=== PATIENT | female | born 1955 | race Caucasian/White ===

== ENCOUNTER 2019-02-20 02:01 | Inpatient (IN) | payer OTHER ==
[2019-02-20] MEDS ORDERED: ASPIRIN 81 MG CHEWABLE TABLETS PO ONE (02:17)
[2019-02-20] MEDS ORDERED: SODIUM CHLORIDE 1,000 ML IV STA (02:17)
[2019-02-20 02:21] VITALS: BMI 31.3
[2019-02-20] MEDS ORDERED: ASPIRIN 81 MG CHEWABLE TABLETS ONE ×2 (02:25→10:46)
--- NOTE | 2019-02-20 02:41 | PDOC ---
Attending Attestation - Resident Resident Name: Ramirez Dias - ED Attending Attestation I have performed the following: I have examined & evaluated the patient, The case was reviewed & discussed with the resident, I agree w/resident's findings & plan - HPI HPI: 02/20/19 02:53 hx of stroke and vomiting at home tonight; 10 episodes after eating eggplant prepared at home and pork dumplings from a [place] restaurant. Pt was likely food poisoned, but after the vomiting, she developed headache and her daughter noted a facial droop. 02/20/19 04:19 Pt has normal labs; low K+ due to all the vomiting. It will be repleted. Pt's YAO is improved, but still present. - Physicial Exam PE: 02/20/19 19:32 Agree with resident exam. Given pt's facial droop that was noted at home, she will be admitted for neuro eval and consult. - Medical Decision Making 02/20/19 05:54 Patient Name: MELANIE SHEPPARD THIS IS A PRELIMINARY REPORT FROM [facility] DATE OF SERVICE: 2019-02-20 02:36:39 IMAGES: 140 EXAM: CT HEAD WITHOUT CONTRAST No acute brain parenchymal abnormality. No hemorrhage, mass or acute territorial infarct. Essentially clear paranasal sinuses. Visualized mastoid air cells clear. Heart Score/ECG Review - ECG Intrepretation Rhythm: Regular Rhythm - ST and T Early Repolarization: No Non Specific ST-T Wave changes: Yes Flattened T Waves: Yes - ECG Impressions Normal ECG: No Ischemic Changes: Yes (inferolateral T wave flattening)
[2019-02-20 02:43] LABS: BASO % 0.6 % (0-2.0); EOS % 1.1 % (0-4.5); HEMATOCRIT 42.1 % (32.4-45.2); HEMOGLOBIN 14.6 GM/dL (10.7-15.3); MCH 30.5 pg (25.7-33.7); MCHC 34.8 g/dl (32.0-36.0); MEAN CELL VOLUME 87.8 fl (80-96); MEAN PLT VOLUME 9.1 fl (7.5-11.1); MONO % 7.5 % (3.8-10.2); NEUT % 67.8 % (42.8-82.8); PLATELET COUNT 202 K/MM3 (134-434); RDW 12.6 % (11.6-15.6); WHITE BLOOD COUNT 10.6 K/mm3 (4.0-10.0)
[2019-02-20] MEDS ORDERED: MECLIZINE HCL 25 MG TABLET (FP) PO ONE (02:44)
--- NOTE | 2019-02-20 02:44 | PDOC ---
History of Present Illness - General Chief Complaint: CVA/TIA Stated Complaint: SLURRED SPEECH Time Seen by Provider: 02/20/19 02:16 History Source: Patient Exam Limitations: No Limitations, Language Barrier - History of Present Illness Initial Comments: 63 yo F w a pmh of HTN, Chronic vertigo, intestinal polyps, lung nodule, CVA 15 years ago presents to the ER with right sided facial droop and speech slurring. This was all associated with 15 episodes of watery vomiting that was NBNB. The patient's daughter is at bedside who is helping with the story. The patient states this feels much worse than her typical vertigo. The patient also states that her vertigo is not usually associated with difficulty speaking or facial weakness. The patient denies any arm or leg numbness, weakness or tingling. Patient also denies recent fevers, chills, or infections. PCP: Brandon Callejas Allergies: NKA, NKDA Social Hx: Denies current smoking, alcohol, or illict drug usage. PSH: cholecystectomy tPA Exclusion checklist 3-4.5h - Time Elapsed Date last known well: 02/19/19 Time last known well: 22:00 Elaspsed time: Day(s) and 6 Hour(s) and 3 Minutes - Thrombolytic Therapy Candidate Is patient eligible for thrombolytic therapy: No - Exclusion Criteria 3-4.5 hr SBP greater than 185 or DBP greater than 110mmHg despite tx: No Recent IC/spinal surgery,head trauma or stroke<3mos.: No Hx IC hemorrhage, IC neoplasm, AV malformation or aneurysm: No Active internal bleeding: No Blding diathesis(low plt ct, inc PTT,INR>1.7 or use of NOAC): No Symptoms suggest subarachnoid hemorrhage: No CT demonstrates multilobar infarct(>1/3 cerebral hemiphere): No Arterial puncture at noncompressible site in previous 7 days: No Blood glucose concentration less than 50mg/dL (2.7mmol/L): No - Relative Exclusion Criteria 3-4.5 hr Life expectancy <1 yr or severe co-morbid illness: No : No Patient/family refused: No Rapid improvement: Yes Stroke severity too mild: Yes Recent acute GA (w/in previous 3 months): No Seizure at onset with postictal residual neuro impairments: No Major surgery or serious trauma w/in previous 14 days: No Recent GI or hemorrhage (w/in previous 21 days): No - Add'l Relative Exclusion 3-4.5 hr Age > 80: No Hx of both diabetes AND prior ischemic stroke: Yes Taking an oral anticoagulant regardless of INR: No NIHSS >25: No - Ineligibility reason(s) Reasons No tPA given: Outside of window - delayed arrival, See reason(s) noted above NIH Stroke Scale - Last Known Well Date/Time & Onset Date Last Known Well: 02/19/19 Time Last Known Well: 22:00 - Initial Evaluation Level of consciousness: Not alert, but arousable with minimal stimulation Ask patient the month and their age: Answers both correctly Ask patient to open & close eyes; make fist and let go: Obeys both correctly Best gaze (horizontal eye movement): Partial gaze palsy Visual field testing: No visual field loss Facial paresis (Show teeth/raise eyebrows/close eyes tight): Minor paralysis ( flattened nasolabial fold, asymmetry on smiling) Motor Function: Left Arm: Normal Motor Function: Right Arm: Normal (extends arm 90 (or 45) degrees for 10 seconds without drift Motor Function: Left Leg: Normal (extends leg 30 degrees for 5 seconds without drift) Motor Function: Right Leg: Normal (extends leg 30 degrees for 5 seconds without drift) Limb Ataxia: No ataxia Sensory(Use pinprick test arms,legs,trunk,face/side to side): Normal Best language (Describe picture, name items, read sentences): No Aphasia Dysarthria (read several words): Normal articulation Extinction and Inattention: No abnormality - Total Score NIH Stroke Scale Score: 3 Past History - Past Medical History Allergies/Adverse Reactions: Allergies Allergy/AdvReac Type Severity Reaction Status Date / Time No Known Allergies Allergy Verified 02/20/19 02:19 Home Medications: Ambulatory Orders Amlodipine Besylate 5 mg PO DAILY 02/20/19 Atorvastatin Ca [Lipitor] 20 mg PO HS 02/20/19 Carbamazepine [Carbamazepine ER] 100 mg PO BID 02/20/19 Meclizine HCl 25 mg PO TID 02/20/19 - Suicide/Smoking/Psychosocial Hx Smoking Status: No Smoking History: Unknown if ever smoked Have you smoked in the past 12 months: No Number of Cigarettes Smoked Daily: 0 Information on smoking cessation initiated: No Hx Alcohol Use: No Drug/Substance Use Hx: No Review of Systems - Review of Systems Able to Perform ROS?: Yes Comments:: CONSTITUTIONAL: No fever, no chills, no fatigue EYES: No visual changes ENT: No ear pain, no sore throat CARDIOVASCULAR: No chest pain, no palpitations RESPIRATORY: No cough, no SOB GI: No abdominal pain, + nausea, + vomiting, no constipation, no diarrhea GENITOURINARY: No dysuria, no frequency, no hematuria MUSKULOSKELETAL: No backpain, no joint pain, no myalgias SKIN: No rash NEURO: + headache *Physical Exam - Vital Signs Last Vital Signs Temp Pulse Resp BP Pulse Ox 97.4 F L 78 18 141/101 H 96 02/20/19 02:19 02/20/19 02:02/20/19 02:02/20/19 02:02/20/19 02:19 - Physical Exam Comments: CONSTITUTIONAL: Well-appearing; well-nourished; in no apparent distress HEAD: Normocephalic; atraumatic EYES: PERRL; EOM intact ENMT: External appears normal; normal oropharynx NECK: Supple; non-tender; no cervical lymphadenopathy CARD: Normal S1, S2; no murmurs, rubs, or gallops RESP: Normal chest excursion with respiration; breath sounds clear and equal bilaterally; no wheezes, rhonchi, or rales ABD: Soft, non-distended; non-tender; no palpable organomegaly, no palpable hernias EXT: Normal ROM in all four extremities; non-tender to palpation; distal pulses intact SKIN: Warm, dry, no rash NEURO: There is a horizontal nystagmus on leftward gaze. Alert, awake, confused. There is a right lower lip droop. No deficits to light touch in face, upper extremities and lower extremities. No motor deficits in the in upper extremities and lower extremities. No pronator drift. Normoreflexic in the upper and lower extremities. Normal speech. Toes are down-going bilaterally. No dysmetria. No dysdiadochokinesis. ED Treatment Course - LABORATORY CBC & Chemistry Diagram: 02/20/19 02:29 02/20/19 02:29 - RADIOLOGY Radiology Studies Ordered: Category Date Time Status HEAD CT (STROKE) [CT] Stat CT Scan 02/20/19 02:17 Taken CHEST X-RAY PORTABLE* [RAD] Stat Radiology 02/20/19 02:18 Ordered - Medications Given in the ED: ED Medications Discontinued Medications Generic Name Dose Route Start Last Admin Trade Name Simone PRN Reason Stop Dose Admin Aspirin 81 mg 02/20/19 02:17 02/20/19 02:34 Asa - PO 02/20/19 02:18 81 mg ONCE ONE Administration Medical Decision Making - Medical Decision Making 63 yo F w a pmh of HTN, Chronic vertigo, intestinal polyps, lung nodule, CVA 15 years ago presents to the ER with right sided facial droop and speech slurring. This was all associated with 15 episodes of watery vomiting that was NBNB. The patient's daughter is at bedside who is helping with the story. The patient states this feels much worse than her typical vertigo. The patient also states that her vertigo is not usually associated with difficulty speaking or facial weakness. The patient denies any arm or leg numbness, weakness or tingling. Patient also denies recent fevers, chills, or infections. VS: Hypertensive, otherwise WNL DDx IBNLT: Posterior stroke, other CVA/TIA, vertigo, complex migraine, intracranial bleed. Plan: Labs, urine, ekg, head ct, cxr, Neuro consult, admit Tele - Patient is not a candidate for TPA *DC/Admit/Observation/Transfer Diagnosis at time of Disposition: Facial weakness, Slurring of speech, Vomiting - Discharge Dispostion Condition at time of disposition: Guarded Decision to Admit order: Yes - Referrals - Patient Instructions - Post Discharge Activity
[2019-02-20] MEDS ORDERED: MECLIZINE HCL 25 MG TABLET (FP) ONE ×2 (02:50→06:06)
[2019-02-20] MEDS ORDERED: METOCLOPRAMIDE HCL INJECTION 10 MG/2 ML VIAL IVPUSH ONE (03:13)
[2019-02-20 03:14] LABS: PH,URINE 8.5 (5.0-8.0); URINE APPEARANCE CLEAR; URINE BILIRUBIN NEGATIVE (NEGATIVE); URINE COLOR YELLOW; URINE GLUCOSE (UA) NEGATIVE (NEGATIVE); URINE KETONE NEGATIVE (NEGATIVE); URINE LEUK ESTERASE NEGATIVE (NEGATIVE); URINE NITRITE NEGATIVE (NEGATIVE); URINE PROTEIN NEGATIVE (NEGATIVE); URINE UROBILINOGEN 0.2 mg/dL (0.2-1.0)
[2019-02-20 03:28] LABS: INR 0.92 (0.83-1.09); PROTHROMBIN TIME (PATIENT) 10.9 SEC (9.7-13.0)
[2019-02-20] MEDS ORDERED: METOCLOPRAMIDE HCL INJECTION 10 MG/2 ML VIAL ONE (03:40)
[2019-02-20 04:01] LABS: ALK PHOS 117 U/L (45-117); ANION GAP 6 MMOL/L (8-16); BILIRUBIN,TOTAL 0.5 mg/dL (0.2-1); BLOOD UREA NITROGEN 16.2 mg/dL (7-18); CALCIUM 9.2 mg/dL (8.5-10.1); CHLORIDE 106 mmol/L (98-107); CHOLESTEROL 225 mg/dL (50-200); CO2 29 mmol/L (21-32); CREATININE 0.8 mg/dL (0.55-1.3); GLUCOSE,RANDOM 142 mg/dL (74-106); HDL CHOLESTEROL 45 mg/dL (40-60); POTASSIUM 3.3 mmol/L (3.5-5.1); SGOT/AST 32 U/L (15-37); SGPT/ALT 27 U/L (13-61); SODIUM 141 mmol/L (136-145); TOT PROT 8.1 g/dl (6.4-8.2); TRIGLYCERIDES 210 mg/dL (0-150)
[2019-02-20] MEDS ORDERED: POTASSIUM CHLORIDE TABS 20 MEQ TABLET.ER (FP) PO ONE ×2 (04:01→04:08)
[2019-02-20] MEDS ORDERED: MAGNESIUM SULF 50% (8.12 MEQ/2 ML-1 GM VIAL) IVPB ONE (04:05)
[2019-02-20] MEDS ORDERED: MAGNESIUM SULF 50% (8.12 MEQ/2 ML-1 GM VIAL) ONE (04:12)
[2019-02-20] MEDS ORDERED: ACETAMINOPHEN 1000 MG/100 ML VIAL (NON FORMULARY) IVPB ONE (04:21)
[2019-02-20] MEDS ORDERED: ACETAMINOPHEN INJECTION 100 ML IVPB ONE (04:51)
[2019-02-20] MEDS ORDERED: SODIUM CHLORIDE 1,000 ML IV SCH (05:30)
--- NOTE | 2019-02-20 05:30 | PN ---
Teaching Attending Note Name of Resident: Rima Mendoza ATTENDING PHYSICIAN STATEMENT I saw and evaluated the patient. Chart, data, imaging reviewed. I reviewed the resident's note and discussed the case with the resident. I agree with the resident's findings and plan as documented. SUBJECTIVE: 63yo woman w/ htn, obesity, DLP, c/o nausea, nonbloody, nonbilious vomiting which started 10 pm last night after eating some fried pork at restaurant. No one ate same food as her. NO fever or diarrhea. Patient's daughter noted she had right facial droop and slurred speech which started also at 10pm last night. No TPa given in ER due. Initial NIH stroke scale - 3, repeat on our exam was 2. OBJECTIVE: Last Vital Signs Temp Pulse Resp BP Pulse Ox 97.4 F L 84 16 157/100 96 02/20/19 02:19 02/20/19 04:55 02/20/19 04:55 02/20/19 04:55 02/20/19 04:55 gen- drowsy, nontoxic heent- atraumatic neck supple chest clear cor - s1+s2+rrr abdomen- soft, nt skin - no rashes neuro - CN grossly intact, motor 5/5 in all extremities, pinprick sensation - dull on left side Abnormal Lab Results 02/20/19 02/20/19 02/20/19 02:29 02:29 02:51 WBC 10.6 H Potassium 3.3 L Anion Gap 6 L Random Glucose 142 H Triglycerides 210 H Cholesterol 225 H Total LDL Cholesterol 137 H Urine pH 8.5 H Ur Specific [place] 1.[address] reviewed, report pending ekg - leads reversed, must repeat appears to be in sinus rhythm ASSESSMENT AND PLAN: #TIA, should r/o CVA given presence of headache, vertigo ,slurred speech, facial droop (now resolved). NIH stroke scale - 2 -admit to telemetry -npo -bed rest -fall precautions -neuro checks q4hrs -echo -f/u official head ct report -carotid duplex b/l -neuro evaluation -speech and swallow eval -ASA -statin -lyme serology -(facial droop) #nausea/vomiting- gastroenteritis from food- now resolved -IV fluid hydration -zofran IV prn -supplement potassium #HTN -uncontrolled -amlodipine 5mg po daily #DVT ppx -heparin sc
--- NOTE | 2019-02-20 05:40 | HP ---
CHIEF COMPLAINT: persistent vomiting, facial droop/slurred speech PCP: Britta (name unknown) HISTORY OF PRESENT ILLNESS: 63F w/ pmhx of chronic vertigo, CVA (15 years ago w/ no neuro deficits, HTN, HLD presents to the hospital for complaints of 10 vomiting episodes as well as slurred speech and facial droop. Pt's daughter present at bedside for translation. Per daughter, pt started having nonbloody vomiting episodes around 9:30pm last night after having eaten fried pork and eggplant that she had bought from a restaurant. Pt reports profuse vomiting associated with intense dizziness that was much more than her baseline vertigo. She admits to nausea/ vomiting and headaches during this episode, but denies abd pain, diarrhea, chest pain, sob. No other known people noted with similar symptoms who ate the same food. At about 10:30pm, another family member who was present with pt at home noticed the pt started having slurred speech and facial droop (unknown which side). This family member reported the pt was too weak to get up and walk herself so an ambulance was called to transport her to the hospital. Upon initial presentation, per ED resident, pt was found to have R sided facial droop and slurred speech with noticeable L nystagmus (NIHSS 3). Upon my evaluation, pt was back to baseline according to daughter present at bedside with resolution of facial droop and slurred speech. Pt stated that her symptoms had much improved and that she felt better. ER course was notable for: (1) BP 141/101, K 3.3, Glu 142, TG 210, Chol 225, LDL 137; CT head pending (2) ASA 81, NS x1L given, Antivert 25 PO, Reglan 10 IV, K-dur 40, Mag 2gm (3) Neuro consulted Recent Travel: Denies PAST MEDICAL HISTORY: Chronic vertigo CVA (15 years ago w/ no neuro deficits) HTN HLD PAST SURGICAL HISTORY: cholecystectomy Social History: Smoking: Former smoker (quit years ago), used to smoke 2 PPD x35 years Alcohol: Denies Drugs: Denies Family History: Maternal grandmother - DM Allergies No Known Allergies Allergy (Verified 02/20/19 02:19) HOME MEDICATIONS: Home Medications Medication Instructions Recorded Amlodipine Besylate 5 mg PO DAILY 02/20/19 Atorvastatin Ca [Lipitor] 20 mg PO HS 02/20/19 Carbamazepine [Carbamazepine ER] 100 mg PO BID 02/20/19 Meclizine HCl 25 mg PO TID 02/20/19 REVIEW OF SYSTEMS CONSTITUTIONAL: Absent: fever, chills, diaphoresis, generalized weakness, malaise, loss of appetite, weight change HEENT: Absent: rhinorrhea, nasal congestion, throat pain, throat swelling, difficulty swallowing, mouth swelling, ear pain, eye pain, visual changes CARDIOVASCULAR: Absent: chest pain, syncope, palpitations, irregular heart rate, lightheadedness , peripheral edema RESPIRATORY: Absent: cough, shortness of breath, dyspnea with exertion, orthopnea, wheezing, stridor, hemoptysis GASTROINTESTINAL: +nausea, vomiting Absent: abdominal pain, abdominal distension, , diarrhea, constipation, melena, hematochezia GENITOURINARY: Absent: dysuria, frequency, urgency, hesitancy, hematuria, flank pain, genital pain MUSCULOSKELETAL: Absent: myalgia, arthralgia, joint swelling, back pain, neck pain NEUROLOGIC: +dizziness Absent: headache, focal weakness or paresthesias, unsteady gait, seizure, mental status changes, bladder or bowel incontinence PHYSICAL EXAMINATION Vital Signs Temperature 97.4 F L 02/20/19 02:19 Pulse Rate 84 02/20/19 04:55 Respiratory Rate 16 02/20/19 04:55 Blood Pressure 157/100 02/20/19 04:55 O2 Sat by Pulse Oximetry (%) 96 02/20/19 04:55 GENERAL: [place]-speaking female. Awake and alert. NAD. HEENT: AT/NC. EOMI. Dry mucus membranes. NECK: Normal range of motion, supple without lymphadenopathy, JVD, or masses. LUNGS: CTA B/L. No wheezes noted. HEART: RRR. Normal S1, S2. No murmurs noted. ABDOMEN: Obese, soft, NT/ND. No masses, guarding. MUSCULOSKELETAL: Normal range of motion at all joints. No bony deformities or tenderness. No CVA tenderness. EXTREMITIES: No peripheral edema noted. NEUROLOGICAL: Facial symmetry noted. Normal speech. CN II-XII intact. 5/5 muscle strength in u/l b/l extremities. No arm/leg drift. Rkbdut-yw-uhpe and rntw-or-ykqn test negative. Decreased pinprick sensation on LUE compared to RUE. B/l sensation intact in LE. SKIN: Warm, dry, normal turgor, no rashes or lesions noted, normal capillary refill. CBCD WBC 10.6 K/mm3 (4.0-10.0) H 02/20/19 02:29 RBC 4.80 M/mm3 (3.60-5.2) 02/20/19 02:29 Hgb 14.6 GM/dL (10.7-15.3) 02/20/19 02:29 Hct 42.1 % (32.4-45.2) 02/20/19 02:29 MCV 87.8 fl (80-96) 02/20/19 02:29 MCHC 34.8 g/dl (32.0-36.0) 02/20/19 02:29 RDW 12.6 % (11.6-15.6) 02/20/19 02:29 Plt Count 202 K/MM3 (134-434) 02/20/19 02:29 MPV 9.1 fl (7.5-11.1) 02/20/19 02:29 CMP Sodium 141 mmol/L (136-145) 02/20/19 02:29 Potassium 3.3 mmol/L (3.5-5.1) L 02/20/19 02:29 Chloride 106 mmol/L (98-107) 02/20/19 02:29 Carbon Dioxide 29 mmol/L (21-32) 02/20/19 02:29 Anion Gap 6 MMOL/L (8-16) L 02/20/19 02:29 BUN 16.2 mg/dL (7-18) 02/20/19 02:29 Creatinine 0.8 mg/dL (0.55-1.3) 02/20/19 02:29 Calcium 9.2 mg/dL (8.5-10.1) 02/20/19 02:29 Total Bilirubin 0.5 mg/dL (0.2-1) 02/20/19 02:29 AST 32 U/L (15-37) 02/20/19 02:29 ALT 27 U/L (13-61) 02/20/19 02:29 Alkaline Phosphatase 117 U/L (45-117) 02/20/19 02:29 Total Protein 8.1 g/dl (6.4-8.2) 02/20/19 02:29 Albumin 4.0 g/dl (3.4-5.0) 02/20/19 02:29 IMAGING: * Head CT: pending ASSESSMENT/PLAN: 63F w/ pmhx of chronic vertigo, CVA (15 years ago w/ no neuro deficits, HTN, HLD presents to the hospital for complaints of 10 vomiting episodes as well as slurred speech and facial droop admitted to r/o stroke. #TIA; r/o stroke as pt presented with headache, severe vertigo, has CVA history and presented with facial droop. NIHSS 2. -Head CT pending; f/u official report -telemetry monitoring -Fall risk/dysphagia precautions/NPO -Neuro checks Q4h -Echo/carotid duplex ordered -Neuro consulted (Dr. 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 It is possible that pt's GI symptoms could have precipitated her worsening vertigo causing her neurological symptoms, but given her risk factors , will need to r/o neuro etiology. -IV fluid hydration -keep NPO until cleared by speech/swallow eval -check electrolytes/replete K+ #HLD -Lipitor 40 mg PO HS #HTN; Uncontrolled. Cont home med: Amlodipine 5 mg QD #Ppx DVT- early ambulation, SCDs FEN -NS @ 100 -recheck lytes in AM -NPO Dispo -admit to tele Visit type - Emergency Visit Emergency Visit: Yes ED Registration Date: 02/20/19 Care time: The patient presented to the Emergency Department on the above date and was hospitalized for further evaluation of their emergent condition. - New Patient This patient is new to me today: Yes Date on this admission: 02/21/19 - Critical Care Critical Care patient: No
[2019-02-20] MEDS ORDERED: MECLIZINE HCL 25 MG TABLET (FP) PO SCH (06:00)
[2019-02-20] MEDS ORDERED: HEPARIN NA (PORCINE) 5,000 UNITS/ML 1ML VIAL ONE ×2 (06:06→14:26)
[2019-02-20] MEDS: HEPARIN NA (PORCINE) 5,000 UNITS/ML 1ML VIAL SQ SCH ×3 (06:26→22:34)
[2019-02-20 07:43] LABS: HEMATOCRIT 38.8 % (32.4-45.2); HEMOGLOBIN 13.7 GM/dL (10.7-15.3); MCH 30.9 pg (25.7-33.7); MCHC 35.4 g/dl (32.0-36.0); MEAN CELL VOLUME 87.2 fl (80-96); MEAN PLT VOLUME 9.1 fl (7.5-11.1); PLATELET COUNT 204 K/MM3 (134-434); RBC 4.45 M/mm3 (3.60-5.2); RDW 12.7 % (11.6-15.6)
[2019-02-20 07:58] LABS: ALBUMIN 3.7 g/dl (3.4-5.0); BILIRUBIN,TOTAL 0.6 mg/dL (0.2-1); BLOOD UREA NITROGEN 11.3 mg/dL (7-18); CALCIUM 8.5 mg/dL (8.5-10.1); CREATININE 0.7 mg/dL (0.55-1.3); TOT PROT 7.2 g/dl (6.4-8.2)
[2019-02-20] MEDS: amLODIPine BESYLATE 5 MG TABLET (FP) PO SCH (10:00)
[2019-02-20] MEDS: ASPIRIN 81 MG CHEWABLE TABLETS PO SCH (10:00)
[2019-02-20] MEDS ORDERED: amLODIPine BESYLATE 5 MG TABLET (FP) ONE (10:47)
--- NOTE | 2019-02-20 11:59 | HOSP ---
Subjective - Review of Symptoms Subjective: c/o hunger and YAO. states nausea has resolved. denies CP, SOB, fever, chills, N/ V/C/D continues to have slurred speech Current Medications Generic Name Dose Route Start Last Admin Trade Name Simone PRN Reason Stop Dose Admin Amlodipine Besylate 5 mg 02/20/19 10:00 02/20/19 10:00 Norvasc - PO 5 mg DAILY ELIZABETH Administration Aspirin 81 mg 02/20/19 10:00 02/20/19 10:00 Asa - PO 81 mg DAILY ELIZABETH Administration Atorvastatin Calcium 40 mg 02/20/19 22:00 Lipitor - PO HS ELIZABETH Heparin Sodium (Porcine) 5,000 unit 02/20/19 06:00 02/20/19 06:26 Heparin - SQ 5,000 unit TID ELIZABETH Administration Sodium Chloride 1,000 mls @ 100 mls/hr 02/20/19 05:30 02/20/19 05:47 Normal Saline - IV 100 mls/hr ASDIR ELIZABETH Administration Meclizine HCl 25 mg 02/20/19 06:00 02/20/19 06:26 Antivert - PO Not Given TID ELIZABETH Last Vital Signs Temp Pulse Resp BP Pulse Ox 97.9 F 68 16 128/78 99 02/20/19 10:00 02/20/19 10:00 02/20/19 10:00 02/20/19 10:00 02/20/19 10:00 General NAD, slurred speech CV S1 S2 RRRR no murmur/rub/gallop Lungs CTA B/L no wheezing/rales/rhonchi Abdomen soft NT/ND obese Extremities no pedal edema Neuro slight L facial droop, slurred speech, remaining CN grossly intact, negative pronator drift/dysmetria and heel to lind testing. gait test deferred CBCD WBC 10.0 K/mm3 (4.0-10.0) 02/20/19 06:42 RBC 4.45 M/mm3 (3.60-5.2) 02/20/19 06:42 Hgb 13.7 GM/dL (10.7-15.3) 02/20/19 06:42 Hct 38.8 % (32.4-45.2) 02/20/19 06:42 MCV 87.2 fl (80-96) 02/20/19 06:42 MCHC 35.4 g/dl (32.0-36.0) 02/20/19 06:42 RDW 12.7 % (11.6-15.6) 02/20/19 06:42 Plt Count 204 K/MM3 (134-434) 02/20/19 06:42 MPV 9.1 fl (7.5-11.1) 02/20/19 06:42 CMP Sodium 145 mmol/L (136-145) 02/20/19 06:42 Potassium 4.0 mmol/L (3.5-5.1) 02/20/19 06:42 Chloride 111 mmol/L (98-107) H 02/20/19 06:42 Carbon Dioxide 27 mmol/L (21-32) 02/20/19 06:42 Anion Gap 7 MMOL/L (8-16) L 02/20/19 06:42 BUN 11.3 mg/dL (7-18) 02/20/19 06:42 Creatinine 0.7 mg/dL (0.55-1.3) 02/20/19 06:42 Calcium 8.5 mg/dL (8.5-10.1) 02/20/19 06:42 Total Bilirubin 0.6 mg/dL (0.2-1) 02/20/19 06:42 AST 18 U/L (15-37) 02/20/19 06:42 ALT 23 U/L (13-61) 02/20/19 06:42 Alkaline Phosphatase 111 U/L (45-117) 02/20/19 06:42 Total Protein 7.2 g/dl (6.4-8.2) 02/20/19 06:42 Albumin 3.7 g/dl (3.4-5.0) 02/20/19 06:42 Assessment and Plan 63yo F wtih PMH HTN, dyslipidemia, obesity, CVA iwth residual L facial droop presented to the ER wtih nausea and vomiting and slurred speech. Code Pires was called 1. R/O CVA- contineus to have slurred speech. initial Head CT is negative. carotid doppler negative. will obtain MRI of brain, echo, neuro, speech eval and PT assessment. started on baby asa and will switch statin to high intensity statin. cont cardiac monitoring to eval for afib. 2. Nausea and vomiting- likely gastroenteritis from food. now seems to resolve. received IVF in the ER and does not appear dehydrated at this time. passed bedside swallow eval. will advance to clear liquid diets and advance as tolerated 3. Hypokalemia- resolved 4. HTN- controlled cont home medications 5. obesity- BMI 31. check A1c for likely metabolic syndrome. public relations counselor on needs for weight loss through diet and exercise. 6. DVT ppx- Hep sq 7. spoke with daughter present at bedside. all questions answered. verbalized understanding and agreement with plan. Rowan Blackman, daughter [phone] Physical Examination Vital Signs: Vital Signs Temperature 97.9 F 02/20/19 10:00 Pulse Rate 68 02/20/19 10:00 Respiratory Rate 16 02/20/19 10:00 Blood Pressure 128/78 02/20/19 10:00 O2 Sat by Pulse Oximetry (%) 99 02/20/19 10:00 Labs: CBC, BMP 02/20/19 06:42 02/20/19 06:42
--- NOTE | 2019-02-20 16:51 | CON.NEURO ---
Consult - Alcohol/Substance Use Hx Alcohol Use: No - Smoking History Smoking history: Unknown if ever smoked Have you smoked in the past 12 months: No Aproximately how many cigarettes per day: 0 Home Medications - Allergies Allergies/Adverse Reactions: Allergies Allergy/AdvReac Type Severity Reaction Status Date / Time No Known Allergies Allergy Verified 02/20/19 02:19 - Home Medications Home Medications: Ambulatory Orders Amlodipine Besylate 5 mg PO DAILY 02/20/19 Atorvastatin Ca [Lipitor] 20 mg PO HS 02/20/19 Carbamazepine [Carbamazepine ER] 100 mg PO BID 02/20/19 Meclizine HCl 25 mg PO TID 02/20/19 Physical Exam-Neuro Vital Signs: Vital Signs Temperature 97.9 F 02/20/19 10:00 Pulse Rate 57 L 02/20/19 15:45 Respiratory Rate 18 02/20/19 15:45 Blood Pressure 125/77 02/20/19 15:45 O2 Sat by Pulse Oximetry (%) 100 02/20/19 15:45 Labs: CBC, BMP 02/20/19 06:42 02/20/19 06:42 INR, PTT INR 0.92 (0.83-1.09) 02/20/19 02:29 Assessment/Plan cc Feeling of vomiting, slurring of speech HPI 63 year old female history of stroke ( recovered from stroke), htn,hld comaplining of feeling of dizzy , patient has slurring of speechand ? facial droopiness. Paitne is feeling back to normal now and ct head unremarkable, nad mri and carotid ultraound is pending. Bonnie was seen withher daughter at bed side. Patient do also have history of chronic vertigo and takes meclizine prn. PMH Chronic vertigo CVA (15 years ago w/ no neuro deficits) HTN HLD PAST SURGICAL HISTORY: cholecystectomy Social History: Smoking: Former smoker (quit years ago), used to smoke 2 PPD x35 years Alcohol: Denies Drugs: Denies Family History: Maternal grandmother - DM No Known Allergies Allergy (Verified 02/20/19 02:19) HOME MEDICATIONS: Home Medications Medication Instructions Recorded Amlodipine Besylate 5 mg PO DAILY 02/20/19 Atorvastatin Ca [Lipitor] 20 mg PO HS 02/20/19 Carbamazepine [Carbamazepine ER] 100 mg PO BID 02/20/19 Meclizine HCl 25 mg PO TID 02/20/19 NEUROLOGICAL EXAMINATION bp on admission is 157/100 alert , speech is normal, and neck is supple eomi, pupils reactive, no facial asymmetry moving all ext sensation is normal ct head is unremarkable carotid ultrasound is unremarkable Assessment/Plan 63 year old male history of htn, hld, previous stroke came with dizziness, vomiting, and facial droopines and slurring of speech. Most likley bppv vs tia Plan: agree with mri ofbrain , carotid ultrasound - statin and antiplatelet - strok education - meclizine prn PT - will continue to follow with primary
[2019-02-20] MEDS ORDERED: ACETAMINOPHEN 325 MG TABLET (FP) ONE (18:56)
[2019-02-20] MEDS ORDERED: ROSUVASTATIN CA 40 MG TABLET PO SCH (22:00)
[2019-02-20] MEDS ORDERED: ATORVASTATIN CA 40 MG TABLET (FP) PO SCH (22:00)
[2019-02-21] MEDS ORDERED: PT OWN MED DRAWER 7, Y5N ONE (01:14)
[2019-02-21] MEDS: ROSUVASTATIN CA 20 MG TABLET (FP) PO SCH ×2 (03:12→21:36)
[2019-02-21] MEDS: HEPARIN NA (PORCINE) 5,000 UNITS/ML 1ML VIAL SQ SCH ×3 (05:14→21:36)
[2019-02-21] MEDS: MECLIZINE HCL 25 MG TABLET (FP) PO PRN ×3 (05:14→21:39)
[2019-02-21] MEDS ORDERED: ONDANSETRON 4 MG/2 ML VIAL IVPUSH ONE (05:52)
[2019-02-21] MEDS ORDERED: ONDANSETRON 4 MG/2 ML VIAL ONE (05:58)
--- NOTE | 2019-02-21 08:49 | PN ---
Physical Exam: SUBJECTIVE: Patient seen and examined at bedside. Pt had episodes of dizziness morning, but improved after given Meclizine. Admits to wretching during these episodes. Upon exam daughter present at bedside. Denies cp, sob, abd pain, urinary/bowel symptoms. Still not hungry, poor PO intake. OBJECTIVE: Vital Signs Temperature 98 F 02/21/19 06:05 Pulse Rate 67 02/21/19 06:05 Respiratory Rate 18 02/21/19 06:05 Blood Pressure 139/99 02/21/19 06:05 O2 Sat by Pulse Oximetry (%) 100 02/20/19 21:15 GENERAL: Kittitian-speaking female. Awake and alert. NAD. HEENT: AT/NC. EOMI. Dry mucus membranes. NECK: Normal range of motion, supple without lymphadenopathy, JVD, or masses. LUNGS: CTA B/L. No wheezes noted. HEART: RRR. Normal S1, S2. No murmurs noted. ABDOMEN: Obese, soft, NT/ND. No masses, guarding. MUSCULOSKELETAL: Normal range of motion at all joints. No bony deformities or tenderness. No CVA tenderness. EXTREMITIES: No peripheral edema noted. NEUROLOGICAL: Facial symmetry noted. Normal speech. CN II-XII intact. 5/5 muscle strength in u/l b/l extremities. No arm/leg drift. lind test negative. Decreased pinprick sensation on LUE compared to RUE. B/l sensation intact in LE. SKIN: Warm, dry, normal turgor, no rashes or lesions noted, normal capillary refill. Laboratory Results - last 24 hr 02/21/19 06:22 POC Glucometer 120 Active Medications Amlodipine Besylate (Norvasc -) 5 mg PO DAILY [facility] Last Admin: 02/20/19 10:00 Dose: 5 mg Aspirin (Asa -) 81 mg PO DAILY [facility] Last Admin: 02/20/19 10:00 Dose: 81 mg Heparin Sodium (Porcine) (Heparin -) 5,000 unit SQ TID [facility] Last Admin: 02/21/19 05:14 Dose: 5,000 unit Meclizine HCl (Antivert -) 25 mg PO TID PRN PRN Reason: dizzyness Last Admin: 02/21/19 05:14 Dose: 25 mg Rosuvastatin Calcium (Crestor -) 40 mg PO HS [facility] Last Admin: 02/21/19 03:12 Dose: 40 mg IMAGING: * Head CT: neg * Carotid duplex: Minimal athersclerotic disease w/ no evid of HD significant stenosis * Brain MRI: No acute infarct. No mass. No hemorrhage. No hydrocephalus. Scattered high T2 signal lesions within the periventricular and subcortical white matter c/w nonspecific white matter disease which is most commonly related to microvascular ischemic changes. ASSESSMENT/PLAN: 63F w/ pmhx of chronic vertigo, CVA (15 years ago w/ no neuro deficits, HTN, HLD presents to the hospital for complaints of 10 vomiting episodes as well as slurred speech and facial droop admitted to r/o stroke. #TIA; r/o stroke as pt presented with headache, severe vertigo, has CVA history and presented with facial droop. NIHSS 2. -Head CT and carotid duplex unremarkble -Brain MRI showed microvascular ischemic changes. 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 Resolved. -Bedside swallow eval passed; on CLD. can advance diet as tolerated. #HLD -Rosuvastatin 40 HS #HTN; Cont home med: Amlodipine 5 mg QD #Obesity; likely metabolic syndrome #Ppx DVT- SQH FEN -oral hydration -recheck lytes in AM -CLD, advance as tolerated Dispo -cont to monitor on tele Visit type - Emergency Visit Emergency Visit: Yes ED Registration Date: 02/20/19 Care time: The patient presented to the Emergency Department on the above date and was hospitalized for further evaluation of their emergent condition. - New Patient This patient is new to me today: No - Critical Care Critical Care patient: No
[2019-02-21] MEDS: amLODIPine BESYLATE 5 MG TABLET (FP) PO SCH (09:02)
[2019-02-21] MEDS: ASPIRIN 81 MG CHEWABLE TABLETS PO SCH (09:02)
--- NOTE | 2019-02-21 11:24 | PN ---
Teaching Attending Note Name of Resident: Rima Mendoza ATTENDING PHYSICIAN STATEMENT I saw and evaluated the patient. I reviewed the resident's note and discussed the case with the resident. I agree with the resident's findings and plan as documented. SUBJECTIVE:c/o dizzynesss. seems to be some improvement since yesterday. no more nausea or vomiting and tolerating clears. requesting to eat more food. denies CP, SOB, fever, chills, N/V/C/D OBJECTIVE: Last Vital Signs Temp Pulse Resp BP Pulse Ox 98 F 70 18 139/86 98 02/21/19 10:00 02/21/19 10:55 02/21/19 10:00 02/21/19 10:55 02/21/19 09:00 General NAD, speech remains slurred CV S1 S2 RRR no murmur/rub/gallop Lungs CTA B/L no wheezing/rales/rhonchi ASSESSMENT AND PLAN: 63yo F wtih PMH HTN, dyslipidemia, obesity, CVA iwth residual L facial droop presented to the ER wtih nausea and vomiting and slurred speech. Code Pires was called 1. R/O CVA- slurred speech persists. continues to have dizzyness raising suspicion for cerebellar involvement. will check orthostatics. f/u Brain MRI. consider obtaining imaging of vertebrals if necessary. echo pending. on asa/ statin. neuro and speech eval planned for tomorrow. cont cardiac monitoring. 2. Nausea and vomiting- likely gastroenteritis from food. now resolved. tolerated liquids. will advance. 3. Hypokalemia- resolved 4. HTN- controlled cont home medications 5. obesity- BMI 31. check A1c for likely metabolic syndrome. general counsel on needs for weight loss through diet and exercise. 6. DVT ppx- Hep sq
--- NOTE | 2019-02-21 13:54 | PN ---
Progress Note (short form) - Note Progress Note: 63 year old female history of stroke ( recovered from stroke), htn,hld comaplining of feeling of dizzy , patient has slurring of speechand ? facial droopiness. Paitne is feeling back to normal now and ct head unremarkable, nad mri and carotid ultraound is pending. Bonnie was seen withher daughter at bed side. Patient do also have history of chronic vertigo and takes meclizine prn. Her mri of brain is normal, and she continue to have intermittent dizziness. NEUROLOGICAL EXAMINATION bp on admission is 157/100 alert , speech is normal, and neck is supple eomi, pupils reactive, no facial asymmetry moving all ext sensation is normal ct head is unremarkable carotid ultrasound is unremarkable mri of brain unremarkabel Assessment/Plan 63 year old male history of htn, hld, previous stroke came with dizziness, vomiting, and facial droopines and slurring of speech. Most likley bppv vs tia, mri of brain and carotid ultrasound is normal Plan: - ocntinue statin and antiplatelet - strok education - meclizine prn PT - will continue to follow with primary
--- NOTE | 2019-02-21 17:06 | EKG ---
Test Reason : Blood Pressure : / mmHG Vent. Rate : 077 BPM Atrial Rate : 077 BPM P-R Int : 192 ms QRS Dur : 096 ms QT Int : 436 ms P-R-T Axes : 045 -11 028 degrees QTc Int : 493 ms NORMAL SINUS RHYTHM PROLONGED QT ABNORMAL ECG NO PREVIOUS ECGS AVAILABLE Confirmed by MD DEMAIRO, SHANTHI ([id number]) on 02/21/2019 5:05:44 PM Referred By: Confirmed By:SHANTHI HANKS MD
[2019-02-21] MEDS ORDERED: ACETAMINOPHEN 325 MG TABLET (FP) PO ONE (19:32)
[2019-02-22] MEDS: MECLIZINE HCL 25 MG TABLET (FP) PO PRN (06:25)
[2019-02-22] MEDS: HEPARIN NA (PORCINE) 5,000 UNITS/ML 1ML VIAL SQ SCH ×2 (06:25→14:17)
[2019-02-22 06:49] VITALS: BP 137/62; PULSE 57; TEMP 98.5
[2019-02-22] MEDS: amLODIPine BESYLATE 5 MG TABLET (FP) PO SCH (09:58)
[2019-02-22] MEDS: ASPIRIN 81 MG CHEWABLE TABLETS PO SCH (09:59)
--- NOTE | 2019-02-22 10:39 | CONSULT ---
Admitting History and Physical - Primary Care Physician PCP: Thuy Leiva - Admission History of Present Illness: 63yo F wtih PMH HTN, dyslipidemia, obesity, CVA iwth residual L facial droop presented to the ER wtih nausea and vomiting and slurred speech, R/O CVA ct head, carotid ultrasound, mri of brain unremarkable Selected Entries 02/21/19 02/21/19 02/21/19 02:00 06:05 09:48 Breakfast 25% Lunch Supper Temperature 98.2 F 98 F 02/21/19 02/21/19 02/21/19 10:00 15:07 18:00 Breakfast Lunch 25% Supper Temperature 98 F 98.7 F 98.8 F 02/21/19 02/21/19 02/22/19 19:22 21:00 02:00 Breakfast Lunch Supper 100% Temperature 98.1 F 98.0 F 02/22/19 06:00 Breakfast Lunch Supper Temperature 98.5 F Laboratory Tests 02/20/19 02:29 WBC 10.6 H History Source: Patient Limitations to Obtaining History: No Limitations - Smoking History Smoking history: Never smoked Have you smoked in the past 12 months: No Aproximately how many cigarettes per day: 0 - Alcohol/Substance Use Hx Alcohol Use: No History - Admission Reason For Visit: SLURRED SPEECH,FACIAL WEAKNESS, VOMITING - Diagnostics X-ray: Report Reviewed CT Scan: Report Reviewed MRI: Report Reviewed - General Mental Status: Alert and Oriented, Awake and Alert, Able to Follow Commands Attention: Intact Ability to Follow Directions: Excellent Head/Neck Control: WFL - Hearing Hearing: Normal Hearing: Normal Hearing Aide: No With Patient: No Speech Evaluation - Communication Primary Language: ALB[place] Communication: Yes: Within Normal Limits, Language Barrier - Speech Production Able to Make Needs Known: Yes: WNL Intelligibility: Yes: WNL (very slight imprecision. Baseline) - Speech Characteristics Voice Loudness: Normal Voice Pitch: Yes: Normal Voice Phonatory-based Quality: Yes: Normal Speech Pattern: Normal Speech Clarity: < 75% Nasal Resonance: Normal Articulation: Yes: Precise Rate of Speech: Intact - Language/Auditory Comprehension Follows: Yes: 2 Stage Simple Commands - Language/Verbal Expression Able to Respond to Simple Queries: Yes: WNL Able to Communicate Wants and Needs: Yes: WNL Functional Communication Status: Yes: WNL - Memory/Perception nursing home Memory: Yes: WNL Short Term Memory: Yes: WNL - Swallow Evaluation/Bedside Assessment Current Nutritional Intake: Regular, Thin Liquids Oral Secretions: Yes: WFL Dentition: Yes: Adequate, Missing Teeth Facial Symmetry at Rest: Symmetrical Facial Symmetry on Retraction: Symmetrical Facial Movement: Controlled Against Resistance Opening: Normal Against Resistance Closing: Normal Pucker Lips: Normal Smile: Normal Lingual Movement: Normal, Symmetric Lingual Speed of Movement: Normal Lingual Movement Strgth Against Opposition: Normal Lingual Movement Characteristics: Normal Velopharyngeal Movement: Normal Laryngeal Movement: Able to Palpate Rate of Intake: WFL Bolus Size: WFL Labial Seal: WFL Chewing: WFL Oral Prep Time: WFL A-P Transit: WFL Pocketing: None Coughing/Throat Clear: No Change in Voice: No Recommendations - Speech Evaluation, Impression/Plan Impression: Speech, swallowing, cognition, language intact - Dysphagia Impressions/Plan Swallowing Skills: WFL Dysphagia Impressions: No Impairment *Silent aspiration: cannot be R/O at bedside - Recommendations Diet Consistency: Regular Medication Administration: Whole with water Liquids: Thin Liquids
--- NOTE | 2019-02-22 12:07 | PN ---
Teaching Attending Note Name of Resident: Rima Mendoza ATTENDING PHYSICIAN STATEMENT I saw and evaluated the patient. I reviewed the resident's note and discussed the case with the resident. I agree with the resident's findings and plan as documented. SUBJECTIVE:asymptomatic. states dizzyness has resolved. denies Cp, SOB, fever, chills, N/V/C/D OBJECTIVE: Last Vital Signs Temp Pulse Resp BP Pulse Ox 98.5 F 57 L 17 137/62 98 02/22/19 06:00 02/22/19 06:00 02/22/19 09:00 02/22/19 06:00 02/22/19 09:00 General NAD, CV S1 S2 RRR no murmur/rub/gallop Lungs CTA B/L no wheezing/rales/rhonchi ASSESSMENT AND PLAN: 63yo F wtih PMH HTN, dyslipidemia, obesity, CVA iwth residual L facial droop presented to the ER wtih nausea and vomiting and slurred speech. Code Pranay was called 1. R/O CVA-clinically improved. MRI done not showing any acute CVA. signs suggestive of chronic disease. cont asa/statin. seen by neuro. evaluted by speech and PT. f/u Echo 2. Nausea and vomiting- likely gastroenteritis from food. now resolved. tolerated liquids. will advance. 3. dizzyness- likely BPPV. resolved with meclizine. cont prn 4. Hypokalemia- resolved 5. HTN- controlled cont home medications 6. obesity- BMI 31. A1c 5.6. res counselor on needs for weight loss through diet and exercise. 7. DVT ppx- Hep sq 8. d/c home pending results of echo
--- NOTE | 2019-02-22 12:43 | ECHO ---
Name: MELANIE SHEPPARD Exam:Adult Echocardiogram Study Date: 02/22/2019 11:13 AM Age: 63 yrs Reason For Study: ASSESS LVF Height: 66 in Weight: 192 lb BSA: 2.0 m2 MMode/2D Measurements & Calculations IVSd: 0.94 cm Ao root diam: 2.9 cm LVIDd: 4.7 cm LA dimension: 3.6 cm LVIDs: 3.0 cm LVPWd: 0.94 cm EDV(Teich): 99.9 ml LVOT diam: 2.3 cm ESV(Teich): 35.3 ml Doppler Measurements & Calculations MV E max gelacio: 51.8 cm/sec Ao V2 max: 133.0 cm/sec MV A max gelacio: 81.4 cm/sec Ao max P.1 mmHg MV E/A: 0.64 Ao V2 mean: 98.4 cm/sec MV dec time: 0.30 sec Ao mean P.0 mmHg Ao V2 VTI: 26.4 cm BI(I,D): 3.6 cm2 BI(V,D): 3.5 cm2 LV V1 max P.5 mmHg SV(LVOT): 93.6 ml LV V1 mean P.0 mmHg LV V1 max: 106.0 cm/sec LV V1 mean: 79.7 cm/sec LV V1 VTI: 21.6 cm TR max gelacio: 221.0 cm/sec Med Peak E' Gelacio: 2.5 cm/sec TR max P.5 mmHg Med E/e': 21.7 Lat Peak E' Gelacio: 2.7 cm/sec Lat E/e': 19.9 Procedure The study was technically adequate with some images being suboptimal in quality. Left Ventricle The left ventricular size, thickness and function are normal. Ejection Fraction = 60-65%. Grade I radha stolic dysfunction, (abnormal relaxation pattern). Right Ventricle The right ventricle is normal in size and function. Atria The left atrial size is normal. Right atrium not well visualized. Mitral Valve The mitral valve is grossly normal. There is trace mitral regurgitation. Tricuspid Valve The tricuspid valve is not well visualized. There is trace tricuspid regurgitation. There was insuffi cient TR detected to calculate RV systolic pressure. Aortic Valve There is mild aortic sclerosis.;. The aortic valve opens well. The aortic valve is trileaflet. No aor tic regurgitation is present. Pulmonic Valve The pulmonic valve is not well visualized. Great Vessels The aortic root is normal size. Pericardium/Pleura There is no pericardial effusion. Interpretation Summary There is no comparison study available. The left ventricular size, thickness and function are normal The right ventricle is normal in size and function. There is trace mitral regurgitation. There is trace tricuspid regurgitation. Ejection Fraction = 60-65%. Grade I diastolic dysfunction, (abnormal relaxation pattern). Leeroy Ramirez MD 02/22/2019 12:42 PM
--- NOTE | 2019-02-22 13:24 | PN ---
Progress Note (short form) - Note Progress Note: 63 year old female history of stroke ( recovered from stroke), htn,hld comaplining of feeling of dizzy , patient has slurring of speechand ? facial droopiness. Paitne is feeling back to normal now and ct head unremarkable. Patient do also have history of chronic vertigo and takes meclizine prn. Her mri of brain is normal, and she continue to have intermittent dizziness. NEUROLOGICAL EXAMINATION bp on admission is 157/100 alert , speech is normal, and neck is supple eomi, pupils reactive, no facial asymmetry moving all ext sensation is normal ct head is unremarkable carotid ultrasound is unremarkable mri of brain unremarkable Assessment/Plan 63 year old male history of htn, hld, previous stroke came with dizziness, vomiting, and facial droopines and slurring of speech. Most likley bppv vs tia, mri of brain and carotid ultrasound is normal Plan: - Continue statin and antiplatelet - strok education - meclizine prn -Patient can be discharged from neurological point of vie Thanking you so much Antony Hall MD
--- NOTE | 2019-02-22 13:45 | DS ---
Physical Exam: SUBJECTIVE: Patient seen and examined OBJECTIVE: Vital Signs Period Temp Pulse Resp BP Sys/Silva Pulse Ox Last 24 Hr 98.0 F-98.8 F 57-75 17-20 117-150/62-95 98-98 PHYSICAL EXAM GENERAL: The patient is awake, alert, and fully oriented, in no acute distress. HEAD: Normal with no signs of trauma. EYES: PERRL, extraocular movements intact, sclera anicteric, conjunctiva clear. ENT: Ears normal, nares patent, oropharynx clear without exudates, moist mucous membranes. NECK: Trachea midline, full range of motion, supple. LUNGS: Breath sounds equal, clear to auscultation bilaterally, no wheezes, no crackles, no accessory muscle use. HEART: Regular rate and rhythm, S1, S2 without murmur, rub or gallop. ABDOMEN: Soft, nontender, nondistended, normoactive bowel sounds, no guarding, no rebound, no hepatosplenomegaly, no masses. EXTREMITIES: 2+ pulses, warm, well-perfused, no edema. NEUROLOGICAL: Cranial nerves II through XII grossly intact. Normal speech, gait not observed. PSYCH: Normal mood, normal affect. SKIN: Warm, dry, normal turgor, no rashes or lesions noted. LABS Laboratory Results - last 24 hr 02/22/19 05:40 Hemoglobin A1c % 5.6 HOSPITAL COURSE: Date of Admission:02/20/19 Date of Discharge: 02/22/19 Discharge Summary Reason For Visit: SLURRED SPEECH,FACIAL WEAKNESS, VOMITING Condition: Improved - Instructions Diet, Activity, Other Instructions: You were seen in the hospital for complaints of nausea/vomiting, as well as slurred speech and facial weakness. In the hospital, you were evaluated by the neurologist and assessed for possible transient ischemic attack (TIA). A head CT , brain MRI, and carotid ultrasound were both done that did not show any significant acute changes. Additionally, you had symptoms of severe dizziness. You were assessed by the neurologist and not found to need emergent intervention at this time. An echocardiogram was done of your heart which did not show acute conditions. During your hospital stay, your symptoms improved. You are being discharged home. MEDICATIONS Please START taking Aspirin 81 mg once daily. Please STOP taking Atorvastatin. Please START taking Crestor 40 mg once a day. You may continue taking the rest of your medications as prescribed. FOLLOW UP Please follow up with your primary care physician within 1 week at [facility]. Please follow up with your neurologist at [facility] at well. If you do not have a neurologist, you may make an appointment to see Dr. Hall. If you experience worsening dizziness, nausea/vomiting, chest pain, shortness of breath, slurred speech, facial droop, please proceed to your nearest emergency room immediately. Referrals: Antony Hall MD [Staff Physician] - 1 Week Disposition: HOME - Home Medications Comprehensive Discharge Medication List: Ambulatory Orders Amlodipine Besylate 5 mg PO DAILY 02/20/19 Carbamazepine [Carbamazepine ER] 100 mg PO BID 02/20/19 Meclizine HCl 25 mg PO TID 02/20/19 Aspirin [ASA -] 81 mg PO DAILY #30 tab.chew 02/22/19 Rosuvastatin [Crestor -] 40 mg PO HS #30 tablet 02/22/19
== END 2019-02-22 15:09 | disposition home or self-care (01) | DRG 47 ==
LOC: JER 02:01 → JERBED 04:04 → J4W 22:30
PROVIDERS: ADMIT Internal Medicine; ATTEND Internal Medicine
DX: G45.9 Transient cerebral ischemic attack, unspecified (principal); E78.5 Hyperlipidemia, unspecified; E66.9 Obesity, unspecified; I69.992 Facial weakness following unspecified cerebrovascular disease; E87.6 Hypokalemia; Z68.31 Body mass index [BMI] 31.0-31.9, adult; R42 Dizziness and giddiness; R11.2 Nausea with vomiting, unspecified; I10 Essential (primary) hypertension; K52.9 Noninfective gastroenteritis and colitis, unspecified
CPT/HCPCS: 36415; 70450-TC; 70551-TC; 71045-TC-FY; 80053; 81003; 82465; 82550; 82962; 83036; 83718; 83721; 84478; 84484; 85025; 85027; 85610; 86618; 93005; 93010; 93306-TC; 93880-TC; 97116-GP; 97161-GP; 99285-25; J0131; J1644; J7030

== ENCOUNTER 2019-02-22 18:20 | Inpatient (IN) | payer OTHER ==
--- NOTE | 2019-02-22 18:52 | PDOC ---
History of Present Illness - General Chief Complaint: Weakness Stated Complaint: SYNCOPE/NEAR SYNCOPE Time Seen by Provider: 02/22/19 18:42 History Source: Patient Exam Limitations: Clinical Condition, Language Barrier - History of Present Illness Initial Comments: 63 yo F w a pmh of HTN, Chronic vertigo, intestinal polyps, lung nodule, CVA 15 years ago presents to the ER with 2 episodes of NBNB vomiting associated with room spinning. The patient was just discharged from the hospital this morning. After a few hours at the house the patient began experiencing tremendous room spinning which would not subside. The patient does not have a headache today and has no facial droop or speech slurring like she did when she presented last week. PCP: Brandon Callejas Allergies: NKA, NKDA Social Hx: Denies current smoking, alcohol, or illict drug usage. PSH: cholecystectomy Past History - Past Medical History Allergies/Adverse Reactions: Allergies Allergy/AdvReac Type Severity Reaction Status Date / Time No Known Allergies Allergy Verified 02/20/19 02:19 Home Medications: Ambulatory Orders Amlodipine Besylate 5 mg PO DAILY 02/20/19 Carbamazepine [Carbamazepine ER] 100 mg PO BID 02/20/19 Meclizine HCl 25 mg PO TID 02/20/19 Aspirin [ASA -] 81 mg PO DAILY #30 tab.chew 02/22/19 Rosuvastatin [Crestor -] 40 mg PO HS #30 tablet 02/22/19 CVA: Yes (15 years ago) COPD: No HTN: Yes - Surgical History Cholecystectomy: Yes - Immunization History Td Vaccination: Yes TDAP Vaccination: Yes Immunization Up to Date: Yes - Suicide/Smoking/Psychosocial Hx Smoking Status: No Smoking History: Never smoked Have you smoked in the past 12 months: No Number of Cigarettes Smoked Daily: 0 Hx Alcohol Use: No Drug/Substance Use Hx: No Substance Use Type: None Hx Substance Use Treatment: No Review of Systems - Review of Systems Able to Perform ROS?: Yes Comments:: CONSTITUTIONAL: No fever, no chills, no fatigue EYES: + visual changes ENT: No ear pain, no sore throat CARDIOVASCULAR: No chest pain, no palpitations RESPIRATORY: No cough, no SOB GI: No abdominal pain,+ nausea, + vomiting, no constipation, no diarrhea GENITOURINARY: No dysuria, no frequency, no hematuria MUSKULOSKELETAL: No backpain, no joint pain, no myalgias SKIN: No rash NEURO: No headache *Physical Exam - Physical Exam Comments: CONSTITUTIONAL: Patient looks like she is in distress. Moderate distress HEAD: Normocephalic; atraumatic EYES: PERRL; EOM intact ENMT: External appears normal; normal oropharynx NECK: Supple; non-tender; no cervical lymphadenopathy CARD: Normal S1, S2; no murmurs, rubs, or gallops RESP: CTAB. No wheezes, rhonchi, or rales ABD: Soft, non-distended; non-tender; no palpable organomegaly, no palpable hernias EXT: Normal ROM in all four extremities; non-tender to palpation; distal pulses intact SKIN: Warm, dry, no rash NEURO: Alert, awake, appropriate. Cranial nerves 2-12 intact. No deficits to light touch in face, upper extremities and lower extremities. No motor deficits in the in face, upper extremities and lower extremities. No pronator drift. Normoreflexic in the upper and lower extremities. Normal speech. Toes are down- going bilaterally. No dysmetria. No dysdiadochokinesis. ED Treatment Course - LABORATORY CBC & Chemistry Diagram: 02/22/19 19:20 02/22/19 19:20 Medical Decision Making - Medical Decision Making 63 yo F w a pmh of HTN, Chronic vertigo, intestinal polyps, lung nodule, CVA 15 years ago presents to the ER with 2 episodes of NBNB vomiting associated with room spinning. The patient was just discharged from the hospital this morning. After a few hours at the house the patient began experiencing tremendous room spinning which would not subside. The patient does not have a headache today and has no facial droop or speech slurring like she did when she presented last week. Vital Signs Temp Pulse Resp BP Pulse Ox 97.5 F L 70 16 150/97 96 02/22/19 18:20 02/22/19 18:20 02/22/19 18:20 02/22/19 18:20 02/22/19 18:20 MDM: This appears to be the patient's chronic vertigo acting up Plan: Will obtain labs, cxr, ekg, and treat with IV hydration, reglan and meclizine then re-assess. Despite multiple attempts with meclizine, valium, reglan, and IV hydration the patient is perpetually vertiginous and cannot stand up or see straight. Her head will not stop spinning. Will admit patient to get her vertigo under control. *DC/Admit/Observation/Transfer Diagnosis at time of Disposition: Vertigo, Chronic vertigo - Discharge Dispostion Condition at time of disposition: Stable Decision to Admit order: Yes - Referrals - Patient Instructions - Post Discharge Activity
[2019-02-22] MEDS ORDERED: SODIUM CHLORIDE 1,000 ML IV STA (18:55)
[2019-02-22] MEDS ORDERED: METOCLOPRAMIDE HCL INJECTION 10 MG/2 ML VIAL IVPUSH ONE (18:57)
[2019-02-22] MEDS ORDERED: MECLIZINE HCL 25 MG TABLET (FP) PO ONE ×2 (18:57→22:06)
[2019-02-22] MEDS ORDERED: METOCLOPRAMIDE HCL INJECTION 10 MG/2 ML VIAL ONE (19:14)
[2019-02-22] MEDS ORDERED: MECLIZINE HCL 25 MG TABLET (FP) ONE ×2 (19:15→22:39)
[2019-02-22 19:32] LABS: BASO % 0.5 % (0-2.0); EOS % 0.3 % (0-4.5); HEMATOCRIT 44.5 % (32.4-45.2); HEMOGLOBIN 15.3 GM/dL (10.7-15.3); LYMPH % 17.3 % (8-40); MCH 29.9 pg (25.7-33.7); MCHC 34.4 g/dl (32.0-36.0); MEAN PLT VOLUME 9.2 fl (7.5-11.1); NEUT % 76.9 % (42.8-82.8); PLATELET COUNT 233 K/MM3 (134-434); RBC 5.12 M/mm3 (3.60-5.2); WHITE BLOOD COUNT 10.1 K/mm3 (4.0-10.0)
[2019-02-22 19:36] VITALS: BMI 27.3
[2019-02-22 19:49] LABS: ALBUMIN 4.4 g/dl (3.4-5.0); BILIRUBIN,TOTAL 0.7 mg/dL (0.2-1); BLOOD UREA NITROGEN 23.6 mg/dL (7-18); CALCIUM 10.3 mg/dL (8.5-10.1); CREATININE 0.9 mg/dL (0.55-1.3); POTASSIUM 3.8 mmol/L (3.5-5.1); TOT PROT 8.5 g/dl (6.4-8.2)
[2019-02-22 19:51] LABS: MAGNESIUM 2.1 mg/dL (1.8-2.4)
[2019-02-22] MEDS ORDERED: SODIUM CHLORIDE 0.9% 500 ML INFUS.BAG IV ONE (21:16)
--- NOTE | 2019-02-22 21:43 | PN ---
Teaching Attending Note Name of Resident: Violette Dozier ATTENDING PHYSICIAN STATEMENT I saw and evaluated the patient. I reviewed the resident's note and discussed the case with the resident. I agree with the resident's findings and plan as documented. SUBJECTIVE: Seen and examined; please refer to resident for further historical information. Briefly, this is a 63 y/o female who was recently discharged from [facility] presenting back through the ER. Her CC is dizziness and vertigo sx; she has a known history of vertigo and her home medications did not relieve her symptoms. She had persisting sx despite 25 meclizine and thus medicine was asked to admit. Similar to previous episodes of vertigo. 10 sys ROS done and negative aside from HPI PMH, PSH, FH, SH reviewed OBJECTIVE: VS, labs, imaging reviewed NAD, AAO, resting comfortably in bed NC AT EOMI PERRLA RRR s1/2 no mgr Lungs CTAB, w/ sym exp +DH No fnd ASSESSMENT AND PLAN: Patient presents with dizziness and headache similar to their prior vertigo episodes. They were just discharged earlier today from an admission where they were seen for dizziness, vomiting, and facial droop. Seen by Dr. Hall at that time who felt her sx were secondary to BPPV vs. TIA; this appears to be once again the case. 1) Vertigo -Known diagnosis and was on home meclizine PRN; increasing to 50 with PRN Valium. -Consider vestibular rehab -Reviewed recent MRI, CT, etc and neuro consult. Can likely followup OP with Dr. Hall but if symptoms worsen can consult 2) Hx Prior CVA/?Recent TIA -Continue ASA, Statin. Continue amlodipine for BP control -Monitor neuro checks 3)
[2019-02-22] MEDS ORDERED: diazePAM CARPU-JECT 10 MG/2 ML DISP.SYRIN IVPUSH ONE (22:07)
--- NOTE | 2019-02-22 22:29 | PDOC ---
Documentation entered by Olga Moore SCRIBE, acting as scribe for Ying Pool DO. Ying Pool DO: This documentation has been prepared by the Teresa jimenez Brenda, SCRIBE, under my direction and personally reviewed by me in its entirety. I confirm that the documentation accurately reflects all work , treatment, procedures, and medical decision making performed by me. Attending Attestation - Resident Resident Name: Ramirez Dias - ED Attending Attestation I have performed the following: I have examined & evaluated the patient, The case was reviewed & discussed with the resident, I agree w/resident's findings & plan - HPI HPI: 02/22/19 21:40 The patient is a 63 year old female, with a significant PMH of HTN, chronic vertigo, intestinal polyps, lung nodule and DCA (15 years ago) who presents to the emergency department with 2 episodes of NBNB vomiting associated with room spinning. The patient was discharged from the hospital this morning, after being here for 4 days for nausea/vomiting, slurred speech and a facial droop, with a possible TIA . She reports that after being home for a few hours, she began experiencing severe room spinning that wouldnt go away, prompting her arrival to the ED. The patient denies chest pain, shortness of breath. Denies fever, chills, diarrhea and constipation.Denies dysuria, frequency, urgency and hematuria. Allergies: NKA Past surgical history: cholecystectomy Social history: Denies smoking use, alcohol use, or drug use. PCP: Doctor at [facility] - Physicial Exam PE: 02/22/19 20:03 Agree with Resident's exam. - Medical Decision Making 02/22/19 22:28 63-year-old female with persistent dizziness Patient has little improvement after meclizine and Reglan as well as IV fluids Plan for additional meclizine as well as Valium with reevaluation planned Case discussed with hospitalist team, plan for readmission for intractable vertigo if not improved
[2019-02-22] MEDS ORDERED: diazePAM 5 MG TABLET PO ONE (22:41)
[2019-02-22] MEDS ORDERED: diazePAM 5 MG TABLET ONE (22:45)
--- NOTE | 2019-02-22 23:01 | HP ---
Admitting History and Physical - Admission History of Present Illness: Pt is 63F w/ pmhx of chronic vertigo (over 5 years), CVA (15 years ago w/ L sided prior facial droop), HTN, HLD presents to the hospital with vertigo/nausea /vomiting after discharge today for TIA and vertigo. Per Pt's daughter, pt was discharged and got home around 2.30pm today and was fine chatting with no complaints. At about 4 pm she became nauseous and had 1 episode of NBNB vomit with spinning of the room, then asked to be brought back to the hospital. Pt reports a 7/10 bitemporal headache with associated spinning of the room. Since being in the ED, she has had no other episodes of vomiting but continues to have the spinning of the head with headache. Pt saw an ENT about 5 years ago in [facility] and was prescribed exercises without relief. She also follows a neurologist in [facility], last visit was 02/09 when she received 4 injections at the back of her head (for tense muscles) after which she had the worst episode of vertigo that led to her last admission in [facility]. Pt had L sided residual facial droop from CVA in past and had presented about 4 days ago for worsening droop and was managed for TIA and continued on meclizine. In ED, she received meclizine 25mg, valium and fluids with no improvement of symptoms. In the past she has had nasal congestion with worsening vertigo. Pt denied a hx of migraine , but has had severe headaches for several years, but denies aura, parasthesias , syncope, hearing loss or tinnitus. She is however unable to walk without support, due to the feeling of spinning of the room. Pt had been previously worked up in past visit, with MRIs and seen by Dr Hall including today. Pt's prescribers at [facility] include: Yelitza Sears and Kris Rodriguez. In ED: She received 5mg meclizine x2, metoclopramide 10mg , Valium- 2,5mg and 5mg IVF- NS 1L x2 History Source: Patient, Family Member, Medical Record - Smoking History Smoking history: Former smoker (Quit 4 years ago after 35years of 1PPD) Have you smoked in the past 12 months: No Aproximately how many cigarettes per day: 0 - Alcohol/Substance Use Hx Alcohol Use: No Home Medications - Allergies Allergies/Adverse Reactions: Allergies Allergy/AdvReac Type Severity Reaction Status Date / Time No Known Allergies Allergy Verified 02/20/19 02:19 - Home Medications Home Medications: Ambulatory Orders Amlodipine Besylate 5 mg PO DAILY 02/20/19 Carbamazepine [Carbamazepine ER] 100 mg PO BID 02/20/19 Meclizine HCl 25 mg PO TID 02/20/19 Aspirin [ASA -] 81 mg PO DAILY #30 tab.chew 02/22/19 Rosuvastatin [Crestor -] 40 mg PO HS #30 tablet 02/22/19 Acetaminophen [Tylenol] 325 mg PO PRN PRN 02/23/19 Duloxetine HCl 60 mg PO DAILY 02/23/19 Gabapentin 300 mg PO DAILY 02/23/19 Ibuprofen 800 mg PO PRN PRN 02/23/19 Ranitidine [Zantac -] 300 mg PO DAILY 02/23/19 Family Disease History - Family Disease History Family Disease History: Other: Father (Unable to obtain), Mother (Arthritis), Sister (Sarcoidosis on treatment), Daughter (overweight) Review of Systems - Review of Systems Constitutional: denies: Fever, Loss of Appetite Eyes: denies: Blurred Vision, Eye Pain, Photophobia HENT: denies: Difficult Swallowing, Ear Discharge, Ear Pain, Throat Pain Cardiovascular: denies: Chest Pain, Edema, Palpitations, Shortness of Breath Respiratory: denies: Cough Gastrointestinal: denies: Abdominal Pain Genitourinary: denies: Burning, Dysuria Musculoskeletal: denies: Back Pain Neurological: reports: Pre-Existing Deficit. denies: Change in LOC, Change in Speech, Confusion, Parasthesia Physical Examination Vital Signs: Vital Signs Temperature 97.5 F L 02/22/19 18:20 Pulse Rate 70 02/22/19 18:20 Respiratory Rate 16 02/22/19 18:20 Blood Pressure 150/97 02/22/19 18:20 O2 Sat by Pulse Oximetry (%) 96 02/22/19 18:20 Constitutional: Yes: Well Nourished, Anxious, Moderate Distress Eyes: Yes: Conjunctiva Clear, EOM Intact, PERRL HENT: Yes: Other (Positive [place]). No: Drooling, Hoarseness, Pharyngeal Erythema Neck: Yes: Supple Cardiovascular: Yes: Regular Rate and Rhythm, S1, S2 Respiratory: Yes: CTA Bilaterally Gastrointestinal: Yes: Normal Bowel Sounds, Soft Edema: No Peripheral Pulses WNL: Yes Neurological: Yes: Alert, Oriented, Babinski negative, Cran Nerves II-XII Intact , Facial Droop, Pre-Existing Deficit, Unsteady Gait (Needed support). No: Confusion, Lethargy ...Motor Strength: WNL Psychiatric: Yes: Alert, Oriented Labs: CBC, BMP 02/22/19 19:20 02/22/19 19:20 Assessment/Plan Ambulatory Orders Amlodipine Besylate 5 mg PO DAILY 02/20/19 Carbamazepine [Carbamazepine ER] 100 mg PO BID 02/20/19 Meclizine HCl 25 mg PO TID 02/20/19 Aspirin [ASA -] 81 mg PO DAILY #30 tab.chew 02/22/19 Rosuvastatin [Crestor -] 40 mg PO HS #30 tablet 02/22/19 Duloxetine HCl 60 mg PO DAILY 02/23/19 Gabapentin 300 mg PO DAILY 02/23/19 Ibuprofen 800 mg PO PRN PRN 02/23/19 Ranitidine [Zantac -] 300 mg PO DAILY 02/23/19 Assessment/Plan: Pt is 63F w/ pmhx of chronic vertigo (over 5 years), CVA (15 years ago w/ L sided prior facial droop), HTN, HLD presents to the hospital after discharge today for TIA with vertigo. #Vertigo with N/V today chronic vertigo (over 5 years), presents to the hospital after discharge today (mx for TIA / vertigo) Cont meclizine 50 tid Valium 2mg Q6H Recently seen by neuro in [facility] - Dr Hall Follows [facility] Recent MRI- 02/21- Non specific white matter disease consistent with microvascular ischemic changes, no mass/mass effect #Headache Pt reported to have chronic headaches in past, never diagnosed with migraines Per family, Pt received injections behind neck to relax muscle tension by [facility] neurologist, see name above On home ibuprof 800mg, tylenol 650, carbamazepine Will hold ibuprof and standing tylenol Cont carbamazepine/duloxetin/gabapentin No psychiatrist/psychologist visit in past CVA (15 years ago w/ L sided prior facial droop, Recent TIA Minimal to no current deficits Cont ASA Cont crestor HTN, Cont amlodipine 5mg HLD Cont crestor PPx Ranitidine- ibuprof on hold Lovenox 40mg sq Diet Regular diet Received NS 1L x2 Monitor lytes, replete as needed Medsurg Visit type - Emergency Visit Emergency Visit: Yes ED Registration Date: 02/22/19 Care time: The patient presented to the Emergency Department on the above date and was hospitalized for further evaluation of their emergent condition. - New Patient This patient is new to me today: Yes Date on this admission: 02/23/19 - Critical Care Critical Care patient: No
[2019-02-23] MEDS ORDERED: MECLIZINE HCL 25 MG TABLET (FP) PO PRN (00:20)
[2019-02-23] MEDS ORDERED: carBAMazepine 200 MG TABLET ONE (02:19)
[2019-02-23 07:45] LABS: BASO % 0.8 % (0-2.0); EOS % 1.2 % (0-4.5); HEMATOCRIT 41.9 % (32.4-45.2); HEMOGLOBIN 14.2 GM/dL (10.7-15.3); LYMPH % 34.7 % (8-40); MCH 29.7 pg (25.7-33.7); MCHC 33.9 g/dl (32.0-36.0); MEAN CELL VOLUME 87.6 fl (80-96); MEAN PLT VOLUME 9.2 fl (7.5-11.1); MONO % 7.6 % (3.8-10.2); NEUT % 55.7 % (42.8-82.8); PLATELET COUNT 214 K/MM3 (134-434); RBC 4.78 M/mm3 (3.60-5.2); RDW 12.7 % (11.6-15.6); WHITE BLOOD COUNT 8.3 K/mm3 (4.0-10.0)
[2019-02-23 08:00] LABS: INR 1.01 (0.83-1.09); PROTHROMBIN TIME (PATIENT) 11.9 SEC (9.7-13.0)
[2019-02-23 08:14] LABS: ALBUMIN 3.7 g/dl (3.4-5.0); BILIRUBIN,TOTAL 0.9 mg/dL (0.2-1); BLOOD UREA NITROGEN 16.2 mg/dL (7-18); CALCIUM 9.6 mg/dL (8.5-10.1); CREATININE 0.7 mg/dL (0.55-1.3); MAGNESIUM 2.1 mg/dL (1.8-2.4); PHOSPHOROUS 3.3 mg/dL (2.5-4.9); POTASSIUM 3.9 mmol/L (3.5-5.1); TOT PROT 7.4 g/dl (6.4-8.2)
[2019-02-23] MEDS: DULoxetine HCL 30 MG CAPSULE.DR PO SCH (10:01)
[2019-02-23] MEDS: RANITIDINE HCL 150 MG TABLET (FP) PO SCH (10:01)
[2019-02-23] MEDS: amLODIPine BESYLATE 5 MG TABLET (FP) PO SCH (10:01)
[2019-02-23] MEDS: ASPIRIN 81 MG CHEWABLE TABLETS PO SCH (10:01)
[2019-02-23] MEDS: ENOXAPARIN NA (PORCINE) 40 MG/0.4 ML DISP.SYRIN SQ SCH (10:01)
--- NOTE | 2019-02-23 12:10 | EKG ---
Test Reason : Blood Pressure : / mmHG Vent. Rate : 068 BPM Atrial Rate : 068 BPM P-R Int : 200 ms QRS Dur : 102 ms QT Int : 412 ms P-R-T Axes : 046 -25 026 degrees QTc Int : 438 ms NORMAL SINUS RHYTHM NORMAL ECG WHEN COMPARED WITH ECG OF 20-FEB-2019 05:32, QT HAS SHORTENED Confirmed by MD GALE, GREG ([id number]) on 02/23/2019 12:10:00 PM Referred By: Confirmed By:GREG BEASLEY MD
[2019-02-23] MEDS ORDERED: PT OWN MED DRAWER 7, Y5N ONE ×2 (14:20→21:03)
[2019-02-23] MEDS: GABAPENTIN 300 MG CAPSULE (FP) PO SCH (14:23)
--- NOTE | 2019-02-23 14:28 | PN ---
Teaching Attending Note Name of Resident: Rima Mendoza ATTENDING PHYSICIAN STATEMENT I saw and evaluated the patient. I reviewed the resident's note and discussed the case with the resident. I agree with the resident's findings and plan as documented. SUBJECTIVE: ongoing dizziness and double vision. Some associated headache and nausea. No vomiting. No photophobia/neck stiffness/fever. OBJECTIVE: Afebrile, hemodynamically Stable. Last Vital Signs Temp Pulse Resp BP Pulse Ox 98.1 F 62 18 128/94 98 02/23/19 05:44 02/23/19 05:44 02/23/19 06:00 02/23/19 05:44 02/23/19 06:00 HEENT - Atrauamtic, Normocephalic. Nystagmus ++ Heart - S1, S2, RRR Lungs - clear to auscultation. Abdomen - Soft, non-tender. Bowel Sound normal. Extremities - Tone/Power normal all 4 extremities. Laboratory Results - last 24 hr 02/22/19 02/22/19 02/22/19 19:20 19:20 19:20 WBC 10.1 H RBC 5.12 Hgb 15.3 Hct 44.5 MCV 87.0 MCH 29.9 MCHC 34.4 RDW 13.0 Plt Count 233 MPV 9.2 Absolute Neuts (auto) 7.8 Neutrophils % 76.9 Lymphocytes % 17.3 D Monocytes % 5.0 Eosinophils % 0.3 Basophils % 0.5 Nucleated RBC % 0 PT with INR INR PTT (Actin FS) Sodium 139 Potassium 3.8 Chloride 104 Carbon Dioxide 29 Anion Gap 7 L BUN 23.6 H Creatinine 0.9 Est GFR (CKD-EPI)AfAm 79.42 Est GFR (CKD-EPI)NonAf 68.53 Random Glucose 137 H Calcium 10.3 H Phosphorus Magnesium 2.1 Total Bilirubin 0.7 AST 34 ALT 35 Alkaline Phosphatase 122 H Troponin I < 0.02 Total Protein 8.5 H Albumin 4.4 Carbamazepine 02/22/19 02/23/19 02/23/19 20:02 07:01 07:05 WBC 8.3 RBC 4.78 Hgb 14.2 Hct 41.9 MCV 87.6 MCH 29.7 MCHC 33.9 RDW 12.7 Plt Count 214 MPV 9.2 Absolute Neuts (auto) 4.6 Neutrophils % 55.7 D Lymphocytes % 34.7 D Monocytes % 7.6 Eosinophils % 1.2 D Basophils % 0.8 Nucleated RBC % 0 PT with INR 11.90 INR 1.01 PTT (Actin FS) 33.0 Sodium Potassium Chloride Carbon Dioxide Anion Gap BUN Creatinine Est GFR (CKD-EPI)AfAm Est GFR (CKD-EPI)NonAf Random Glucose Calcium Phosphorus Magnesium Total Bilirubin AST ALT Alkaline Phosphatase Troponin I Total Protein Albumin Carbamazepine 1.1 02/23/19 07:05 WBC RBC Hgb Hct MCV MCH MCHC RDW Plt Count MPV Absolute Neuts (auto) Neutrophils % Lymphocytes % Monocytes % Eosinophils % Basophils % Nucleated RBC % PT with INR INR PTT (Actin FS) Sodium 144 Potassium 3.9 Chloride 109 H Carbon Dioxide 29 Anion Gap 6 L BUN 16.2 Creatinine 0.7 Est GFR (CKD-EPI)AfAm 107.62 Est GFR (CKD-EPI)NonAf 92.86 Random Glucose 91 Calcium 9.6 Phosphorus 3.3 Magnesium 2.1 Total Bilirubin 0.9 AST 27 ALT 29 Alkaline Phosphatase 107 Troponin I Total Protein 7.4 Albumin 3.7 Carbamazepine Current Medications Generic Name Dose Route Start Last Admin Trade Name Freq PRN Reason Stop Dose Admin Amlodipine Besylate 5 mg 02/23/19 10:00 02/23/19 10:01 Norvasc - PO 5 mg DAILY ELIZABETH Administration Aspirin 81 mg 02/23/19 10:00 02/23/19 10:01 Asa - PO 81 mg DAILY ELIZABETH Administration Carbamazepine 100 mg 02/23/19 10:00 Tegretol Xr - PO BID [facility] Diazepam 2 mg 02/23/19 00:20 Valium - PO Q6H PRN VERTIGO Duloxetine HCl 60 mg 02/23/19 10:00 02/23/19 10:01 Cymbalta - PO 60 mg DAILY ELIZABETH Administration Enoxaparin Sodium 40 mg 02/23/19 10:00 02/23/19 10:01 Lovenox - SQ 40 mg DAILY ELIZABETH Administration Gabapentin 300 mg 02/23/19 11:00 Neurontin - PO DAILY ELIZABETH Meclizine HCl 50 mg 02/23/19 00:20 Antivert - PO TID PRN VERTIGO Ranitidine HCl 300 mg 02/23/19 10:00 02/23/19 10:01 Zantac - PO 300 mg DAILY ELIZABETH Administration Rosuvastatin Calcium 40 mg 02/23/19 22:00 Crestor - PO HS ELIZABETH Home Medications Medication Instructions Recorded Amlodipine Besylate 5 mg PO DAILY 02/20/19 Carbamazepine [Carbamazepine ER] 100 mg PO BID 02/20/19 Meclizine HCl 25 mg PO TID 02/20/19 Aspirin [ASA -] 81 mg PO DAILY #30 tab.chew 02/22/19 Rosuvastatin [Crestor -] 40 mg PO HS #30 tablet 02/22/19 Acetaminophen [Tylenol] 325 mg PO PRN PRN 02/23/19 Duloxetine HCl 60 mg PO DAILY 02/23/19 Gabapentin 300 mg PO DAILY 02/23/19 Ibuprofen 800 mg PO PRN PRN 02/23/19 Ranitidine [Zantac -] 300 mg PO DAILY 02/23/19 ASSESSMENT AND PLAN: 63 year old female with Chronic/Recurrent Vertigo, Hx CVA (15 years ago w/ residual L sided prior facial droop), HTN, HLD, re-admitted with dizziness. 1. Dizziness secondary to Vertigo. Lateral Nystagmus present on physical exam MRI 02/21/19 - no acute findings. Non specific white matter disease consistent with microvascular ischemic changes Meclizine dose increased to 50mg with Valium 2mg q6h added. Neurology re-consulted for further evaluation and recommendations for ongoing symptoms PT for vestibular rehab. 2. Chronic Headache with associated dizziness Previously received injections by Neurologist at [facility] ? Botox Continue carbamazepine/duloxetin/gabapentin 3. Hx CVA with residual L facial droop No new focal neurological symptoms MRI - no acute infarct/lesion. Continue Aspirin/Crestor. 4. HTN - Continue Norvasc. 5. HLD - Continue Crestor. DVT Px - Lovenox SQ
--- NOTE | 2019-02-23 15:17 | PN ---
Physical Exam: SUBJECTIVE: Patient seen and examined at bedside. Still complains of mild dizziness, but no nausea or vomiting. Admits to L sided temporal numbness/pain as well as some sinus pain. OBJECTIVE: Vital Signs Temperature 98.9 F 02/23/19 14:43 Pulse Rate 62 02/23/19 05:44 Respiratory Rate 18 02/23/19 06:00 Blood Pressure 128/94 02/23/19 05:44 O2 Sat by Pulse Oximetry (%) 98 02/23/19 06:00 GENERAL: Montenegrin-speaking female. AAOx3. Mildly uncomfortable in bed due to dizziness. HEENT: AT/NC. L lateral nystagmus NECK: Trachea midline, full range of motion, supple. LUNGS: CTA B/L. Symmetric chest rise. No wheezes, rhonchi, rales noted. HEART: RRR. Normal S1, S2. No murmurs noted. ABDOMEN: Soft, NT/ND. +BS. EXTREMITIES: 2+ pulses, warm, well-perfused, no edema. NEUROLOGICAL: Residual SKIN: Warm, dry, normal turgor, no rashes or lesions noted CBCD WBC 8.3 K/mm3 (4.0-10.0) 02/23/19 07:05 RBC 4.78 M/mm3 (3.60-5.2) 02/23/19 07:05 Hgb 14.2 GM/dL (10.7-15.3) 02/23/19 07:05 Hct 41.9 % (32.4-45.2) 02/23/19 07:05 MCV 87.6 fl (80-96) 02/23/19 07:05 MCHC 33.9 g/dl (32.0-36.0) 02/23/19 07:05 RDW 12.7 % (11.6-15.6) 02/23/19 07:05 Plt Count 214 K/MM3 (134-434) 02/23/19 07:05 MPV 9.2 fl (7.5-11.1) 02/23/19 07:05 CMP Sodium 144 mmol/L (136-145) 02/23/19 07:05 Potassium 3.9 mmol/L (3.5-5.1) 02/23/19 07:05 Chloride 109 mmol/L (98-107) H 02/23/19 07:05 Carbon Dioxide 29 mmol/L (21-32) 02/23/19 07:05 Anion Gap 6 MMOL/L (8-16) L 02/23/19 07:05 BUN 16.2 mg/dL (7-18) 02/23/19 07:05 Creatinine 0.7 mg/dL (0.55-1.3) 02/23/19 07:05 Calcium 9.6 mg/dL (8.5-10.1) 02/23/19 07:05 Total Bilirubin 0.9 mg/dL (0.2-1) 02/23/19 07:05 AST 27 U/L (15-37) 02/23/19 07:05 ALT 29 U/L (13-61) 02/23/19 07:05 Alkaline Phosphatase 107 U/L (45-117) 02/23/19 07:05 Total Protein 7.4 g/dl (6.4-8.2) 02/23/19 07:05 Albumin 3.7 g/dl (3.4-5.0) 02/23/19 07:05 Active Medications Amlodipine Besylate (Norvasc -) 5 mg PO DAILY [facility] Last Admin: 02/23/19 10:01 Dose: 5 mg Aspirin (Asa -) 81 mg PO DAILY [facility] Last Admin: 02/23/19 10:01 Dose: 81 mg Carbamazepine (Tegretol Xr -) 100 mg PO BID [facility] Diazepam (Valium -) 2 mg PO Q6H PRN PRN Reason: VERTIGO Duloxetine HCl (Cymbalta -) 60 mg PO DAILY [facility] Last Admin: 02/23/19 10:01 Dose: 60 mg Enoxaparin Sodium (Lovenox -) 40 mg SQ DAILY [facility] Last Admin: 02/23/19 10:01 Dose: 40 mg Gabapentin (Neurontin -) 300 mg PO DAILY [facility] Last Admin: 02/23/19 14:23 Dose: 300 mg Meclizine HCl (Antivert -) 50 mg PO TID PRN PRN Reason: VERTIGO Ranitidine HCl (Zantac -) 300 mg PO DAILY [facility] Last Admin: 02/23/19 10:01 Dose: 300 mg Rosuvastatin Calcium (Crestor -) 40 mg PO [facility]: * Head CT: neg * Carotid duplex: Minimal athersclerotic disease w/ no evid of HD significant stenosis * Brain MRI: No acute infarct. No mass. No hemorrhage. No hydrocephalus. Scattered high T2 signal lesions within the periventricular and subcortical white matter c/w nonspecific white matter disease which is most commonly related to microvascular ischemic changes. ASSESSMENT/PLAN: 63Fwith Chronic/Recurrent Vertigo, Hx CVA (15 years ago w/ residual L sided prior facial droop), HTN, HLD, re-admitted with dizziness. #Dizziness secondary to Vertigo -Lateral Nystagmus present on physical exam -MRI (02/21/19) unremarkable; no acute findings. Non specific white matter disease consistent with microvascular ischemic changes -Meclizine dose increased to 50mg with Valium 2mg q6h added. -Pt last seen by neuro during previous admission (Dr. Hall); will re-consult for further recommendations -PT for vestibular rehab #Chronic Headache with associated dizziness -has had previous botox injections by neurologist at [facility] Cont home meds: Carbamazepine 100 BID, Duloxetine 60 QD, Gabapentin 300 QD #Hx CVA with residual L facial droop Cont home meds: ASA 81, Crestor 40 HS -No new focal neurological symptoms -MRI - no acute infarct/lesion. #HTN - Cont home med: Norvasc 5 QD #HLD - Cont home med: Crestor 40 HS DVT Px - Lovenox SQ Dispo -cont to monitor on med-surg Visit type - Emergency Visit Emergency Visit: Yes ED Registration Date: 02/22/19 Care time: The patient presented to the Emergency Department on the above date and was hospitalized for further evaluation of their emergent condition. - New Patient This patient is new to me today: Yes Date on this admission: 02/23/19 - Critical Care Critical Care patient: No
--- NOTE | 2019-02-23 15:24 | CON.NEURO ---
Consult - Alcohol/Substance Use Hx Alcohol Use: No - Smoking History Smoking history: Former smoker Have you smoked in the past 12 months: No Aproximately how many cigarettes per day: 0 Home Medications - Allergies Allergies/Adverse Reactions: Allergies Allergy/AdvReac Type Severity Reaction Status Date / Time No Known Allergies Allergy Verified 02/20/19 02:19 - Home Medications Home Medications: Ambulatory Orders Amlodipine Besylate 5 mg PO DAILY 02/20/19 Carbamazepine [Carbamazepine ER] 100 mg PO BID 02/20/19 Meclizine HCl 25 mg PO TID 02/20/19 Aspirin [ASA -] 81 mg PO DAILY #30 tab.chew 02/22/19 Rosuvastatin [Crestor -] 40 mg PO HS #30 tablet 02/22/19 Acetaminophen [Tylenol] 325 mg PO PRN PRN 02/23/19 Duloxetine HCl 60 mg PO DAILY 02/23/19 Gabapentin 300 mg PO DAILY 02/23/19 Ibuprofen 800 mg PO PRN PRN 02/23/19 Ranitidine [Zantac -] 300 mg PO DAILY 02/23/19 Family Disease History - Family Disease History Family Disease History: Other: Father (Unable to obtain), Mother (Arthritis), Sister (Sarcoidosis on treatment), Daughter (overweight) Physical Exam-Neuro Vital Signs: Vital Signs Temperature 98.9 F 02/23/19 14:43 Pulse Rate 62 02/23/19 05:44 Respiratory Rate 18 02/23/19 06:00 Blood Pressure 128/94 02/23/19 05:44 O2 Sat by Pulse Oximetry (%) 98 02/23/19 06:00 Labs: CBC, BMP 02/23/19 07:05 02/23/19 07:05 INR, PTT INR 1.01 (0.83-1.09) 02/23/19 07:01 Assessment/Plan cc Vertigo and headhace senation HPI 63 year old female history of chronic vertigo for long time, stroke 15 years ago , htn, hld. She recently admitted for tia lke syptoms. She was discharged home, and she had episode of nasuea vomiting, vertigo and headahce. She has ct head unremarkable. Patient was given meclizine at home and it did not helped She was given her home medication including cymbalta. and she is feeling better. There was no droopiness of face this time. Allergies/Adverse Reactions: Allergies Allergy/AdvReac Type Severity Reaction Status Date / Time No Known Allergies Allergy Verified 02/20/19 02:19 Home Medications: Amlodipine Besylate 5 mg PO DAILY 02/20/19 Carbamazepine [Carbamazepine ER] 100 mg PO BID 02/20/19 Meclizine HCl 25 mg PO TID 02/20/19 Aspirin [ASA -] 81 mg PO DAILY #30 tab.chew 02/22/19 Rosuvastatin [Crestor -] 40 mg PO HS #30 tablet 02/22/19 Acetaminophen [Tylenol] 325 mg PO PRN PRN 02/23/19 Duloxetine HCl 60 mg PO DAILY 02/23/19 Gabapentin 300 mg PO DAILY 02/23/19 Ibuprofen 800 mg PO PRN PRN 02/23/19 Ranitidine [Zantac -] 300 mg PO DAILY 02/23/19 ROS,FH,SH reviewed in chart NEUROLOGICAL EXAMINATION Alert oriented x 3 CN all intact Motor 5/5 sensation is normal no nystagmus and ftn and hsn is normal ct head is not done Assessment/Plan Recurrent vomiting and vertigo, history of chornic vertigo Plan: ENT evaluation can be done outpatient - zofran prn and ativan prn, as meclizine is not working - no need for imaging -PT Follow up outpatient Thanking you so much Antony Hall MD
[2019-02-23] MEDS ORDERED: ONDANSETRON 4 MG/2 ML VIAL IVPUSH ONE (15:30)
[2019-02-23] MEDS: diazePAM 2 MG TABLET PO PRN (21:14)
[2019-02-23] MEDS ORDERED: ROSUVASTATIN CA 20 MG TABLET (FP) PO SCH (22:00)
[2019-02-24] MEDS: diazePAM 2 MG TABLET PO PRN (04:41)
[2019-02-24] MEDS ORDERED: PT OWN MED DRAWER 7, Y5N ONE ×2 (09:53→10:40)
[2019-02-24] MEDS: amLODIPine BESYLATE 5 MG TABLET (FP) PO SCH (09:55)
[2019-02-24] MEDS: GABAPENTIN 300 MG CAPSULE (FP) PO SCH ×2 (09:55→10:02)
[2019-02-24] MEDS: DULoxetine HCL 30 MG CAPSULE.DR PO SCH (09:55)
[2019-02-24] MEDS: ASPIRIN 81 MG CHEWABLE TABLETS PO SCH (09:55)
[2019-02-24] MEDS: RANITIDINE HCL 150 MG TABLET (FP) PO SCH (09:55)
[2019-02-24] MEDS: ENOXAPARIN NA (PORCINE) 40 MG/0.4 ML DISP.SYRIN SQ SCH (09:56)
--- NOTE | 2019-02-24 13:23 | DS ---
Physical Exam: SUBJECTIVE: Patient seen and examined at bedside. No acute events overnight. OBJECTIVE: Vital Signs Period Temp Pulse Resp BP Sys/Silva Pulse Ox Last 24 Hr 97.6 F-98.9 F 66-69 20-20 108-130/87-88 98-98 PHYSICAL EXAM GENERAL: Persian-speaking female. AAOx3. Mildly uncomfortable in bed due to dizziness. HEENT: AT/NC. L lateral nystagmus NECK: Trachea midline, full range of motion, supple. LUNGS: CTA B/L. Symmetric chest rise. No wheezes, rhonchi, rales noted. HEART: RRR. Normal S1, S2. No murmurs noted. ABDOMEN: Soft, NT/ND. +BS. EXTREMITIES: 2+ pulses, warm, well-perfused, no edema. NEUROLOGICAL: Residual SKIN: Warm, dry, normal turgor, no rashes or lesions noted LABS HOSPITAL COURSE: Date of Admission:02/22/19 63F with chronic/recurrent vertigo, hx of CVA (15 years ago w/ residual L sided prior facial droop), HTN, HLD, re-admitted with dizziness. No imaging studies were done this admission as they were recently completed within the past week during previous admission and were all unremarkable. Upon initial eval, pt was found to have nausea/vomiting and persistent dizziness. She was re-evaluated by neuro and was given Valium with good effect. Her symptoms improved throughout her hospital stay. Upon discharge, pt was given a temporary supply of Valium for her symptoms and advised to follow up with her PCP, neurologist, and headache specialist, as well as ENT for further outpatient evaluation. Date of Discharge: 02/24/19 Minutes to complete discharge: 35 Discharge Summary Reason For Visit: CHRONIC VERITGO Condition: Improved - Instructions Diet, Activity, Other Instructions: You were seen in the hospital for complaints of dizziness. You were seen by the neurologist with no need for emergent intervention during your hospitalization. You were given Valium for your dizziness with symptomatic improvement. You are being discharged home. MEDICATIONS Please START taking Valium 2 mg once a day for 5 days for dizziness. You may continue taking the rest of your home medications as directed. FOLLOW UP Please follow up with your primary care physician, within 1 week at [facility]. Please follow up with your neurologist, Dr. Hall, within 1 week for further evaluation of your dizziness. Please follow up with your ENT (ear, nose, and throat) doctor, Dr. Boston within 1 week. Referrals: Antony Hall MD [Staff Physician] - 1 Week Froy Boston MD [Staff Physician] - 1 Week Disposition: HOME - Home Medications Comprehensive Discharge Medication List: Ambulatory Orders RX: Amlodipine Besylate 5 mg PO DAILY 02/20/19 RX: Carbamazepine [Carbamazepine ER] 100 mg PO BID 02/20/19 RX: Meclizine HCl 25 mg PO TID 02/20/19 RX: Aspirin [ASA -] 81 mg PO DAILY #30 tab.chew 02/22/19 RX: Rosuvastatin [Crestor -] 40 mg PO HS #30 tablet 02/22/19 RX: Acetaminophen [Tylenol] 325 mg PO PRN PRN 02/23/19 RX: Duloxetine HCl 60 mg PO DAILY 02/23/19 RX: Gabapentin 300 mg PO DAILY 02/23/19 RX: Ibuprofen 800 mg PO PRN PRN 02/23/19 RX: Ranitidine [Zantac -] 300 mg PO DAILY 02/23/19 Diazepam [Valium] 2 mg PO DAILY PRN 5 Days #5 tablet MDD 2mg 02/24/19 RX: Diazepam [Valium] 2 mg PO DAILY PRN #5 tablet MDD 2 02/24/19 This patient is new to me today: Yes Date on this admission: 02/25/19 Emergency Visit: Yes ED Registration Date: 02/22/19 Care time: The patient presented to the Emergency Department on the above date and was hospitalized for further evaluation of their emergent condition. Critical Care patient: No - Discharge Referral Referred to [facility] Med P.C.: No
[2019-02-24 14:46] VITALS: BP 156/93; PULSE 78; TEMP 99
--- NOTE | 2019-02-24 16:06 | PN ---
Teaching Attending Note Name of Resident: Rima Mendoza ATTENDING PHYSICIAN STATEMENT I saw and evaluated the patient. I reviewed the resident's note and discussed the case with the resident. I agree with the resident's findings and plan as documented. SUBJECTIVE: Dizziness much improved. No further double vision, headache, nausea. No vomiting. No photophobia/neck stiffness/fever. OBJECTIVE: Afebrile, hemodynamically Stable. Last Vital Signs Temp Pulse Resp BP Pulse Ox 99.0 F 78 20 156/93 98 02/24/19 14:45 02/24/19 14:45 02/24/19 09:00 02/24/19 14:45 02/24/19 06:00 HEENT - Atrauamtic, Normocephalic. Nystagmus on lateral gaze. Heart - S1, S2, RRR Lungs - clear to auscultation. Abdomen - Soft, non-tender. Bowel Sound normal. Extremities - Tone/Power normal all 4 extremities. Current Medications Generic Name Dose Route Start Last Admin Trade Name Freq PRN Reason Stop Dose Admin Amlodipine Besylate 5 mg 02/23/19 10:00 02/24/19 09:55 Norvasc - PO 5 mg DAILY ELIZBAETH Administration Aspirin 81 mg 02/23/19 10:00 02/24/19 09:55 Asa - PO 81 mg DAILY ELIZABETH Administration Carbamazepine 100 mg 02/23/19 15:30 02/24/19 09:56 Tegretol Xr - PO 100 mg BID ELIZABETH Administration Diazepam 2 mg 02/23/19 00:20 02/24/19 04:41 Valium - PO 2 mg Q6H PRN Administration VERTIGO Duloxetine HCl 60 mg 02/23/19 10:00 02/24/19 09:55 Cymbalta - PO 60 mg DAILY ELIZABETH Administration Enoxaparin Sodium 40 mg 02/23/19 10:00 02/24/19 09:56 Lovenox - SQ 40 mg DAILY ELIZABETH Administration Gabapentin 300 mg 02/23/19 11:00 02/24/19 10:02 Neurontin - PO Not Given DAILY ELIZABETH Meclizine HCl 50 mg 02/23/19 00:20 Antivert - PO TID PRN VERTIGO Ranitidine HCl 300 mg 02/23/19 10:00 02/24/19 09:55 Zantac - PO 300 mg DAILY ELIZABETH Administration Rosuvastatin Calcium 40 mg 02/23/19 22:00 02/23/19 21:13 Crestor - PO 40 mg HS ELIZABETH Administration ASSESSMENT AND PLAN: 63 year old female with Chronic/Recurrent Vertigo, Hx CVA (15 years ago w/ residual L sided prior facial droop), HTN, HLD, re-admitted with dizziness. 1. Dizziness secondary to Vertigo - much improved. MRI 02/21/19 - no acute findings. Non-specific white matter disease consistent with microvascular ischemic changes Meclizine dose increased to 50mg with Valium 2mg prn added. Neurology re-consulted for further evaluation and recommendations for ongoing symptoms - recommends same as above. Ambulating stably. For out-patient Neurology follow up. 2. Chronic/Recurrent Headache with associated dizziness Previously received injections by Neurologist at [facility] ? Botox Continue carbamazepine/duloxetin/gabapentin 3. Hx CVA with residual L facial droop No new focal neurological symptoms MRI - no acute infarct/lesion. Continue Aspirin/Crestor. 4. HTN - Continue Norvasc. 5. HLD - Continue Crestor. Medically and Neurologically Stable for discharge.
== END 2019-02-24 17:51 | disposition home or self-care (01) | DRG 111 ==
LOC: JER 18:20 → JERBED 22:49 → J6S 02-23 04:16
PROVIDERS: ADMIT Internal Medicine
DX: R42 Dizziness and giddiness (principal); R55 Syncope and collapse; I10 Essential (primary) hypertension; I69.392 Facial weakness following cerebral infarction; R91.1 Solitary pulmonary nodule; K63.5 Polyp of colon; E78.5 Hyperlipidemia, unspecified; R11.2 Nausea with vomiting, unspecified; R51 Headache; Z87.891 Personal history of nicotine dependence; G45.9 Transient cerebral ischemic attack, unspecified
CPT/HCPCS: 36415; 71045-TC-FY; 80053; 80156; 83735; 84100; 84484; 85025; 85610; 85730; 93005; 93010; 97116-GP; 97161-GP; 99285-25; J7030

== ENCOUNTER 2020-04-15 16:29 | Emergency (ER) | payer OTHER ==
[2020-04-15 16:39] VITALS: BMI 34.7
--- NOTE | 2020-04-15 17:54 | PDOC ---
History of Present Illness - General Chief Complaint: Pain Stated Complaint: ABD PAIN Time Seen by Provider: 04/15/20 17:06 - History of Present Illness Initial Comments: 04/15/20 17:48 65yo F w/ h/o appendectomy, cholecystectomy, and four births p/w lower ABD pain. She endorses 1month of mild pain and yesterday it became severe while doing chores. She describes it as strong and sharp and made worse after eating greasy foods. She went to her PCP today and was told to go to the ED for a CT scan. Denies fever, recent illness, n/v Denies hematuria, discharge, dysuria Denies bleeding disorders. Denies excessive alcohol intake. Past History - Medical History Allergies/Adverse Reactions: Allergies Allergy/AdvReac Type Severity Reaction Status Date / Time No Known Allergies Allergy Verified 04/15/20 16:36 Home Medications: Ambulatory Orders Amlodipine Besylate 5 mg PO DAILY 02/20/19 Carbamazepine [Carbamazepine ER] 100 mg PO BID 02/20/19 Meclizine HCl 25 mg PO TID 02/20/19 Aspirin [ASA -] 81 mg PO DAILY #30 tab.chew 02/22/19 Rosuvastatin [Crestor -] 40 mg PO HS #30 tablet 02/22/19 Acetaminophen [Tylenol] 325 mg PO PRN PRN 02/23/19 Duloxetine HCl 60 mg PO DAILY 02/23/19 Gabapentin 300 mg PO DAILY 02/23/19 Ibuprofen 800 mg PO PRN PRN 02/23/19 Ranitidine [Zantac -] 300 mg PO DAILY 02/23/19 Diazepam [Valium] 2 mg PO DAILY PRN 5 Days #5 tablet MDD 2mg 02/24/19 CVA: Yes (15 years ago) COPD: No HTN: Yes - Surgical History Cholecystectomy: Yes - Reproductive History Is Patient Now?: No - Immunization History Td Vaccination: Yes TDAP Vaccination: Yes Immunization Up to Date: Yes - Psycho-Social/Smoking History Smoking Status: No Smoking History: Former smoker Have you smoked in the past 12 months: No Number of Cigarettes Smoked Daily: 0 If you are a former smoker, when did you quit?: 2014 Information on smoking cessation initiated: Yes - Substance Abuse Hx (Audit-C & DAST Scrn) How often the patient has a drink containing alcohol: Never Score: In Men: 4 or > Positive; In Women: 3 or > Positive: 0 Screen Result (Pos requires Nsg. Audit-10AR): Negative In the last yr the pt used illegal drug/Rx for NonMed reason: No Score: Yes response is considered Positive: 0 Screen Result (Positive result requires Nsg. DAST-10): Negative Review of Systems - Review of Systems Able to Perform ROS?: Yes Is the patient limited Haitian proficient: Yes Constitutional: No: Diaphoresis, Fever, Loss of Appetite, Malaise, Night Sweats, Weakness HEENTM: No: Symptoms Reported Respiratory: No: Cough, Shortness of Breath, SOB at Rest Cardiac (ROS): No: Chest Pain, Edema, Irregular Heart Rate, Palpitations, Syncope, Chest Tightness ABD/GI: Yes: Nausea, Abdominal cramping. No: Diarrhea, Poor Appetite, Rectal Bleeding, Vomiting : No: Burning, Dysuria, Flank Pain, Hematuria, Incontinence Musculoskeletal: No: Joint Swelling, Muscle Weakness, Joint Stiffness Integumentary: No: Erythema, Flushing, Rash Neurological: No: Headache, Seizure, Weakness Psychiatric: No: Mood Swings *Physical Exam - Vital Signs Last Vital Signs Temp Pulse Resp BP Pulse Ox 98.1 F 61 16 148/83 99 04/15/20 16:36 04/15/20 16:36 04/15/20 16:36 04/15/20 16:36 04/15/20 16:36 - Physical Exam General Appearance: Yes: Nourished, Appropriately Dressed HEENT: positive: EOMI, FRANCESCO, Normal Voice Neck: positive: Supple Respiratory/Chest: positive: Lungs Clear, Normal Breath Sounds Cardiovascular: positive: Regular Rhythm, Regular Rate, S1, S2 Gastrointestinal/Abdominal: positive: Normal Bowel Sounds, Tender, Other (discoloration). negative: Guarding Rectal Exam: positive: deferred Musculoskeletal: positive: Normal Inspection. negative: CVA Tenderness Extremity: positive: Normal Capillary Refill, Normal Inspection Integumentary: positive: Normal Color, Dry, Warm Neurologic: positive: Normal Mood/Affect Discharge - Discharge Information Problems reviewed: Yes Clinical Impression/Diagnosis: Abdominal pain Qualifiers: Abdominal location: unspecified location Qualified Code(s): R10.9 - Unspecified abdominal pain - Follow up/Referral - Patient Discharge Instructions - Post Discharge Activity
[2020-04-15] MEDS ORDERED: ACETAMINOPHEN 1000 MG/100 ML VIAL (NON FORMULARY) IVPB ONE (17:59)
[2020-04-15] MEDS ORDERED: ACETAMINOPHEN INJECTION 100 ML IVPB ONE (18:17)
[2020-04-15] MEDS ORDERED: SODIUM CHLORIDE 1,000 ML IV ONE (18:42)
[2020-04-15] MEDS ORDERED: ONDANSETRON 4 MG/2 ML VIAL IVPUSH ONE (18:42)
[2020-04-15 19:01] LABS: HEMOGLOBIN 14.3 GM/dL (10.7-15.3); MCH 29.8 pg (25.7-33.7); MCHC 33.4 g/dl (32.0-36.0); MEAN CELL VOLUME 89.3 fl (80-96); MEAN PLT VOLUME 10.2 fl (7.5-11.1); PLATELET COUNT 194 K/MM3 (134-434); RBC 4.82 M/mm3 (3.60-5.2); RDW 13.2 % (11.6-15.6)
[2020-04-15 19:05] LABS: EPI CELLS 7 /uL (0-25.1); HYALINE CASTS 1 /uL (0-3.1); PH,URINE 6.5 (5.0-8.0); URINE APPEARANCE CLEAR; URINE BACTERIA 928 /uL (0-1359); URINE BILIRUBIN NEGATIVE (NEGATIVE); URINE COLOR YELLOW; URINE GLUCOSE (UA) NEGATIVE (NEGATIVE); URINE KETONE NEGATIVE (NEGATIVE); URINE LEUK ESTERASE NEGATIVE (NEGATIVE); URINE NITRITE NEGATIVE (NEGATIVE); URINE PROTEIN NEGATIVE (NEGATIVE); URINE RBC 7 /uL (0-23.9); URINE WBC 4 /uL (0-25.8)
--- NOTE | 2020-04-15 19:08 | PDOC ---
Documentation entered by Dorina Kay SCRIBE, acting as scribe for Juwan Mak MD. Juwan Mak MD: This documentation has been prepared by the leighannibeEliza Sydney, SCRIBE, under my direction and personally reviewed by me in its entirety. I confirm that the documentation accurately reflects all work, treatment, procedures, and medical decision making performed by me. Attending Attestation - Resident Resident Name: Bobby Kovacs - ED Attending Attestation I have performed the following: I have examined & evaluated the patient, The case was reviewed & discussed with the resident, I agree w/resident's findings & plan, Exceptions are as noted - HPI HPI: 04/15/20 18:10 Patient is a 65 year female with a significant past medical history of appendectomy, cholecystectomy, four live births who presents to the ED with abdominal pain. As per patient, her mild LLQ pain began about one month ago, but notes that while cleaning yesterday, her pain worsened. Patient notes her sharp pain radiates to her left groin and left flank, and has been to relieve her symptoms with medication. Patient reports seeing a doctor at [facility] today for her pain, prompting her arrival to the ED for further evaluation. Patient states she has noticed frequency changes and constipation. Denies fever, chills, nausea, vomiting, or diarrhea. Denies vaginal bleeding or discharge. Allergies: NKDA PCP: Brandon at [facility] - Physicial Exam PE: 04/15/20 18:40 GENERAL: The patient is awake, alert, and fully oriented, Nontoxic - in no acute distress. HEAD: Normocephalic, atraumatic. EYES: extraocular movements intact, sclera anicteric, conjunctiva clear. ENT: Normal voice, Moist mucous membranes. NECK: Normal range of motion, supple LUNGS: Breath sounds equal, clear to auscultation bilaterally. No wheezes, no rhonchi, no rales. HEART: Regular rate and rhythm, normal S1 and S2 without murmur, rub or gallop. ABDOMEN: Left lower quadrant tenderness, no masses, no guarding, no rebound. No CVA tenderness EXTREMITIES: Normal range of motion, no edema. NEUROLOGICAL: No facial assymetry, Normal speech, PSYCH: Normal mood, normal affect. SKIN: Warm, Dry, normal turgor, - Medical Decision Making 04/15/20 18:41 65-year-old female history of hypertension presenting with 1 month of worsening left lower quadrant pain that worsened last 2 to 3 days On exam she is fairly tender in her left lower quadrant, ddx includes but is not limited to diverticulitis, hernia, uti, kidney stones will obtain blood work, CT abdomen, ua will give meds for pain will reassess 04/15/20 22:[address] results reviewed will obtain tvus pt feels impoved, but still iwth mild pain 04/15/20 23:55 awaiting TVUS if neg, anticipate dc with outpatient fu Heart Score/ECG Review - ECG Impressions Comment:: 04/15/20 19:55 Twelve-lead EKG was performed and reviewed by me. There is normal sinus rhythm Rate of [address] wave changes suggestive of acute ischemia Discharge - Discharge Information Problems reviewed: Yes Clinical Impression/Diagnosis: Adnexal mass Abdominal pain Qualifiers: Abdominal location: unspecified location Qualified Code(s): R10.9 - Unspecified abdominal pain Condition: Improved Disposition: HOME - Follow up/Referral Referrals: Unruly Cole MD [Staff Physician] - - Patient Discharge Instructions Patient Printed Discharge Instructions: Uterine Fibroids, DI for Abdominal Pain-Adult, DI for Pelvic Pain Additional Instructions: You have been seen in the Emergency Department for your abdominal pain. Your CT scan shows a myomatous uterus and an abnormality in your left adnexal (ovary) region. You will need further evaluation by a investigator fraud. We have given you a referral for Dr Cole. Call to make an appointment for follow-up within 1 week. If you experience pain, you can take Tylenol or Ibuprofen as directed on the medication bottle, but do not exceed 3g of Ibuprofen or 4g of Tylenol a day. Fo llow-up with your primary care doctor within 1 week. Return to the Emergency Department immediately if you experience worsening pain, vomiting, passing out, or any other new or worsening symptom. Print Language: SLOVAK - Post Discharge Activity
[2020-04-15 19:30] LABS: ALBUMIN 3.8 g/dl (3.4-5.0); BILIRUBIN,TOTAL 1.4 mg/dL (0.2-1); BLOOD UREA NITROGEN 15.5 mg/dL (7-18); CALCIUM 9.9 mg/dL (8.5-10.1); CREATININE 0.7 mg/dL (0.55-1.3); POTASSIUM 4.3 mmol/L (3.5-5.1); TOT PROT 7.6 g/dl (6.4-8.2)
[2020-04-15] MEDS ORDERED: CYCLOBENZAPRINE HCL 5 MG TABLET PO ONE (22:40)
[2020-04-15] MEDS ORDERED: IBUPROFEN 600 MG TABLET (FP) PO ONE (22:40)
--- NOTE | 2020-04-15 22:40 | PDOC ---
*Physical Exam - Vital Signs Last Vital Signs Temp Pulse Resp BP Pulse Ox 98.1 F 61 16 148/83 99 04/15/20 16:36 04/15/20 16:36 04/15/20 16:36 04/15/20 16:36 04/15/20 16:36 ED Treatment Course - LABORATORY CBC & Chemistry Diagram: 04/15/20 18:40 04/15/20 18:40 - ADDITIONAL ORDERS Additional order review: Laboratory Results 04/15/20 04/15/20 04/15/20 18:40 18:40 18:40 Sodium 142 Potassium 4.3 Chloride 107 Carbon Dioxide 27 Anion Gap 9 BUN 15.5 Creatinine 0.7 Est GFR (CKD-EPI)AfAm 106.12 Est GFR (CKD-EPI)NonAf 91.56 Random Glucose 95 Lactic Acid 0.9 Calcium 9.9 Total Bilirubin 1.4 H AST 34 ALT 28 Alkaline Phosphatase 97 Total Protein 7.6 Albumin 3.8 Lipase 136 Urine Color Yellow Urine Appearance Clear Urine pH 6.5 D Ur Specific [place] 1.012 Urine Protein Negative Urine Glucose (UA) Negative Urine Ketones Negative Urine Blood Trace Urine Nitrite Negative Urine Bilirubin Negative Urine Urobilinogen 1.0 Ur Leukocyte Esterase Negative Urine WBC (Auto) 4 Urine RBC (Auto) 7 Urine Casts (Auto) 1 U Epithel Cells (Auto) 7 Urine Bacteria (Auto) 928 04/15/20 18:40 RBC 4.82 MCV 89.3 MCHC 33.4 RDW 13.2 MPV 10.2 D - Medications Given in the ED: ED Medications Discontinued Medications Generic Name Dose Route Start Last Admin Trade Name Freq PRN Reason Stop Dose Admin Acetaminophen 1,000 mg 04/15/20 17:59 04/15/20 18:27 Ofirmev Injection - IVPB 04/15/20 18:00 1,000 mg ONCE ONE Administration Sodium Chloride 1,000 mls @ 1,000 mls/hr 04/15/20 18:42 04/15/20 19:09 Normal Saline - IV 04/15/20 19:41 1,000 mls/hr .Q1H ONE Administration Ondansetron HCl 4 mg 04/15/20 18:42 04/15/20 19:09 Zofran Injection IVPUSH 04/15/20 18:43 4 mg ONCE ONE Administration Medical Decision Making - Medical Decision Making 04/15/20 22:39 Received sign out. 65-year-old female history of hypertension presenting with 1 month of worsening left lower quadrant pain that worsened last 2 to 3 days, TTP LLQ. Reviewed labs. []CTAP, consider TVUS CTAP reviewed: myomatous uterus, nonspecific abnormalitiy in L adnexal region Pain still present mostly localized to L mons pubis, hard tender, possible mu scle spasm vs lymph node -Ibuprofen -Flexeril -TVUS 04/16/20 00:59 TVUS reviewed Pain improved but still present, wants to go home Dc with paver installer f/u Discharge - Discharge Information Problems reviewed: Yes Clinical Impression/Diagnosis: Adnexal mass Abdominal pain Qualifiers: Abdominal location: unspecified location Qualified Code(s): R10.9 - Unspecified abdominal pain Condition: Improved Disposition: HOME - Admission No - Follow up/Referral Referrals: Unruly Cole MD [Staff Physician] - - Patient Discharge Instructions Patient Printed Discharge Instructions: Uterine Fibroids, DI for Abdominal Pain-Adult, DI for Pelvic Pain Additional Instructions: You have been seen in the Emergency Department for your abdominal pain. Your CT scan shows a myomatous uterus and an abnormality in your left adnexal (ovary) region. 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 We have given you a referral for Dr Cole. Call to make an appointment for follow-up within 1 week. If you experience pain, you can take Tylenol or Ibuprofen as directed on the medication bottle, but do not exceed 3g of Ibuprofen or 4g of Tylenol a day. Follow-up with your primary care doctor within 1 week. Return to the Emergency Department immediately if you experience worsening pain, vomiting, passing out, or any other new or worsening symptom. Print Language: TELUGU - Post Discharge Activity
[2020-04-16] MEDS ORDERED: IBUPROFEN 600 MG TABLET (FP) PO ONE (00:37)
[2020-04-16] MEDS ORDERED: CYCLOBENZAPRINE HCL 10 MG TABLET (FP) ONE (00:37)
[2020-04-16 00:51] VITALS: BP 148/97; PULSE 70; TEMP 97.8
--- NOTE | 2020-04-16 00:51 | PDOC ---
*Physical Exam - Vital Signs Last Vital Signs Temp Pulse Resp BP Pulse Ox 98.1 F 61 16 148/83 99 04/15/20 16:36 04/15/20 16:36 04/15/20 16:36 04/15/20 16:36 04/15/20 16:36 ED Treatment Course - LABORATORY CBC & Chemistry Diagram: 04/15/20 18:40 04/15/20 18:40 - ADDITIONAL ORDERS Additional order review: Laboratory Results 04/15/20 04/15/20 04/15/20 18:40 18:40 18:40 Sodium 142 Potassium 4.3 Chloride 107 Carbon Dioxide 27 Anion Gap 9 BUN 15.5 Creatinine 0.7 Est GFR (CKD-EPI)AfAm 106.12 Est GFR (CKD-EPI)NonAf 91.56 Random Glucose 95 Lactic Acid 0.9 Calcium 9.9 Total Bilirubin 1.4 H AST 34 ALT 28 Alkaline Phosphatase 97 Total Protein 7.6 Albumin 3.8 Lipase 136 Urine Color Yellow Urine Appearance Clear Urine pH 6.5 D Ur Specific [place] 1.012 Urine Protein Negative Urine Glucose (UA) Negative Urine Ketones Negative Urine Blood Trace Urine Nitrite Negative Urine Bilirubin Negative Urine Urobilinogen 1.0 Ur Leukocyte Esterase Negative Urine WBC (Auto) 4 Urine RBC (Auto) 7 Urine Casts (Auto) 1 U Epithel Cells (Auto) 7 Urine Bacteria (Auto) 928 04/15/20 18:40 RBC 4.82 MCV 89.3 MCHC 33.4 RDW 13.2 MPV 10.2 D - Medications Given in the ED: ED Medications Discontinued Medications Generic Name Dose Route Start Last Admin Trade Name Patoq PRN Reason Stop Dose Admin Acetaminophen 1,000 mg 04/15/20 17:59 04/15/20 18:27 Ofirmev Injection - IVPB 04/15/20 18:00 1,000 mg ONCE ONE Administration Cyclobenzaprine HCl 5 mg 04/15/20 22:40 04/16/20 00:38 Cyclobenzaprine Hcl PO 04/15/20 22:41 5 mg NOW ONE Administration Sodium Chloride 1,000 mls @ 1,000 mls/hr 04/15/20 18:42 04/15/20 19:09 Normal Saline - IV 04/15/20 19:41 1,000 mls/hr .Q1H ONE Administration Ibuprofen 600 mg 04/15/20 22:40 04/16/20 00:38 Motrin - PO 04/15/20 22:41 600 mg ONCE ONE Administration Ondansetron HCl 4 mg 04/15/20 18:42 04/15/20 19:09 Zofran Injection IVPUSH 04/15/20 18:43 4 mg ONCE ONE Administration Medical Decision Making - Medical Decision Making 04/16/20 00:51 Patient Name: MELANIE SHEPPARD THIS IS A PRELIMINARY REPORT DATE OF SERVICE: 2020-04-15 23:01:44 IMAGES: 29 EXAM: Pelvic ultrasound HISTORY: Left pelvic pain. COMPARISON: None. FINDINGS: Limited study. The ovaries could not be visualized due to excess moving bowel and bowel gas. If ovarian pathology is suspected, further imaging investigation recommended. MRI may be helpful. Normal uterus. Normal homogeneous endometrial complex measuring 4.8 mm in thickness Discharge - Discharge Information Problems reviewed: Yes Clinical Impression/Diagnosis: Adnexal mass Abdominal pain Qualifiers: Abdominal location: unspecified location Qualified Code(s): R10.9 - Unspecified abdominal pain Condition: Stable Disposition: HOME - Follow up/Referral Referrals: Unruly Cole MD [Staff Physician] - - Patient Discharge Instructions Patient Printed Discharge Instructions: DI for Pelvic Pain, Uterine Fibroids Print Language: CROATIAN - Post Discharge Activity
--- NOTE | 2020-04-16 08:53 | EKG ---
Test Reason : Blood Pressure : / mmHG Vent. Rate : 058 BPM Atrial Rate : 058 BPM P-R Int : 208 ms QRS Dur : 096 ms QT Int : 456 ms P-R-T Axes : 060 -08 034 degrees QTc Int : 447 ms SINUS BRADYCARDIA LOW VOLTAGE QRS SEPTAL INFARCT , AGE UNDETERMINED ABNORMAL ECG WHEN COMPARED WITH ECG OF 22-FEB-2019 18:37, SEPTAL INFARCT IS NOW PRESENT Confirmed by Skylar Batista ([id number]) on 04/16/2020 8:53:43 AM Referred By: Confirmed By:Skylar Batista
== END 2020-04-16 01:20 | disposition home or self-care (01) ==
LOC: JER 16:29
PROC: 3E033GC Introduction of Other Therapeutic Substance into Peripheral Vein, Percutaneous Approach (ICD-10-PCS; principal; 2020-04-15)
PROC: 3E033GC Introduction of Other Therapeutic Substance into Peripheral Vein, Percutaneous Approach (ICD-10-PCS; 2020-04-15)
PROC: 3E0337Z Introduction of Electrolytic and Water Balance Substance into Peripheral Vein, Percutaneous Approach (ICD-10-PCS; 2020-04-15)
DX: R19.09 Other intra-abdominal and pelvic swelling, mass and lump (principal); R10.9 Unspecified abdominal pain
CPT/HCPCS: 36415; 74177-TC; 76830-TC; 80053; 81003; 83605; 83690; 85027; 93005; 93010; 99285-25; J0131; Q9967

== ENCOUNTER 2020-09-25 18:52 | Emergency (ER) | payer OTHER ==
[2020-09-25 18:59] VITALS: BP 150/90; PULSE 95; TEMP 100.7; BMI 30.2
[2020-09-25] MEDS ORDERED: ACETAMINOPHEN 1000 MG/100 ML VIAL (NON FORMULARY) IVPB ONE (19:57)
[2020-09-25] MEDS ORDERED: FAMOTIDINE 20 MG/50 ML IVPB 20 MG/50 ML MG IVPB ONE ×2 (19:57→20:12)
[2020-09-25] MEDS ORDERED: LACTATED RINGERS SOLUTION 1000 ML INFUS.BAG IV ONE ×2 (19:58→22:37)
[2020-09-25] MEDS ORDERED: ACETAMINOPHEN INJECTION 100 ML IVPB ONE (20:12)
[2020-09-25 21:07] LABS: BASO % 0.3 % (0-2.0); HEMOGLOBIN 14.4 GM/dL (10.7-15.3); LYMPH % 19.4 % (8-40); MCH 29.8 pg (25.7-33.7); MCHC 34.3 g/dl (32.0-36.0); MEAN CELL VOLUME 86.9 fl (80-96); MEAN PLT VOLUME 10.5 fl (7.5-11.1); MONO % 11.2 % (3.8-10.2); NEUT % 69.1 % (42.8-82.8); PLATELET COUNT 154 K/MM3 (134-434); RBC 4.83 M/mm3 (3.60-5.2); RDW 12.7 % (11.6-15.6); WHITE BLOOD COUNT 5.1 K/mm3 (4.0-10.0)
[2020-09-25 21:23] LABS: ALBUMIN 3.6 g/dl (3.4-5.0); BLOOD UREA NITROGEN 10.5 mg/dL (7-18); CALCIUM 8.7 mg/dL (8.5-10.1)
[2020-09-25 21:24] LABS: MAGNESIUM 1.7 mg/dL (1.8-2.4)
[2020-09-25 21:26] LABS: INR 1.08 (0.83-1.09); PROTHROMBIN TIME (PATIENT) 13.2 SEC (9.7-13.0)
[2020-09-25 21:27] LABS: CREATININE 0.8 mg/dL (0.55-1.3)
[2020-09-25 21:28] LABS: ACTIVATED PTT 30.4 SECONDS (25.2-36.5)
[2020-09-25 21:28] LABS: BILIRUBIN,TOTAL 1.3 mg/dL (0.2-1); TOT PROT 7.3 g/dl (6.4-8.2)
[2020-09-25 21:29] LABS: LDH 347 U/L (84-246)
[2020-09-25 21:43] LABS: POTASSIUM 2.9 mmol/L (3.5-5.1)
[2020-09-25] MEDS ORDERED: POTASSIUM CHLORIDE ORAL LIQUID 20 MEQ/15 ML PO ONE (22:05)
[2020-09-25] MEDS ORDERED: MAGNESIUM SULF 50% (8.12 MEQ/2 ML-1 GM VIAL) IVPB ONE (22:12)
[2020-09-25 22:23] LABS: ERYTHROCYTE SEDIMENTATION RATE 25 mm/hr (0-30)
[2020-09-25] MEDS ORDERED: MECLIZINE HCL 25 MG TABLET (FP) PO ONE (22:37)
[2020-09-25] MEDS ORDERED: POTASSIUM CHLORIDE ORAL LIQUID 20 MEQ/15 ML ONE (22:43)
[2020-09-25] MEDS ORDERED: MECLIZINE HCL 25 MG TABLET (FP) ONE (22:49)
[2020-09-25] MEDS ORDERED: MAGNESIUM 1GM/D5W - 1 GM/100 ML IVPB IVPB ONE (22:50)
== END 2020-09-26 00:58 | disposition home or self-care (01) ==
LOC: JER 18:52
PROC: 3E033NZ Introduction of Analgesics, Hypnotics, Sedatives into Peripheral Vein, Percutaneous Approach (ICD-10-PCS; principal; 2020-09-25)
PROC: 3E033GC Introduction of Other Therapeutic Substance into Peripheral Vein, Percutaneous Approach (ICD-10-PCS; 2020-09-25)
PROC: 3E03329 Introduction of Other Anti-infective into Peripheral Vein, Percutaneous Approach (ICD-10-PCS; 2020-09-25)
DX: R42 Dizziness and giddiness (principal); R50.9 Fever, unspecified; U07.1 COVID-19
CPT/HCPCS: 36415; 70450-TC; 71045-TC-FY; 80053; 82728; 83615; 83735; 84443; 84484; 85025; 85610; 85651; 85730; 86140; 87040; 93005; 93010; 99285-25; J0131

== ENCOUNTER 2020-09-27 08:57 | Emergency (ER) | payer OTHER ==
[2020-09-27 09:08] VITALS: BMI 21.9
[2020-09-27] MEDS: BAMLANIVIMAB 700 MG in SODIUM CHLORIDE 180 ML IVPB ONE ×2 (10:52→12:00)
[2020-09-27] MEDS ORDERED: SODIUM CHLORIDE 0.9% 500 ML INFUS.BAG IV ONE (11:49)
[2020-09-27 12:00] VITALS: BP 131/84; PULSE 89
[2020-09-27 12:01] VITALS: TEMP 98.4
== END 2020-09-27 13:36 | disposition home or self-care (01) ==
LOC: JCOVINFU 08:57
DX: U07.1 COVID-19 (principal)
CPT/HCPCS: 99284-25; M0239; Q0239

== ENCOUNTER 2020-09-29 09:50 | Emergency (ER) | payer OTHER ==
[2020-09-29 09:58] VITALS: TEMP 97.6; BMI 29.0
[2020-09-29] MEDS ORDERED: SODIUM CHLORIDE 0.9% 500 ML INFUS.BAG IV ONE (10:37)
[2020-09-29] MEDS ORDERED: ACETAMINOPHEN 1000 MG/100 ML VIAL (NON FORMULARY) IVPB ONE (10:37)
[2020-09-29] MEDS ORDERED: ACETAMINOPHEN INJECTION 100 ML IVPB ONE (11:16)
[2020-09-29 11:49] LABS: BASO % 0.5 % (0-2.0); EOS % 1.4 % (0-4.5); HEMATOCRIT 42.3 % (32.4-45.2); HEMOGLOBIN 14.2 GM/dL (10.7-15.3); LYMPH % 25.8 % (8-40); MCH 29.4 pg (25.7-33.7); MCHC 33.5 g/dl (32.0-36.0); MEAN CELL VOLUME 87.8 fl (80-96); MEAN PLT VOLUME 9.3 fl (7.5-11.1); MONO % 12.6 % (3.8-10.2); NEUT % 59.7 % (42.8-82.8); PLATELET COUNT 248 K/MM3 (134-434); RBC 4.83 M/mm3 (3.60-5.2); RDW 13.1 % (11.6-15.6); WHITE BLOOD COUNT 8.1 K/mm3 (4.0-10.0)
[2020-09-29 11:57] LABS: INR 1.02 (0.83-1.09); PROTHROMBIN TIME (PATIENT) 12.5 SEC (9.7-13.0)
[2020-09-29 11:59] LABS: ACTIVATED PTT 29.9 SECONDS (25.2-36.5)
[2020-09-29 12:14] LABS: POTASSIUM 3.7 mmol/L (3.5-5.1)
[2020-09-29 12:16] LABS: CALCIUM 9.5 mg/dL (8.5-10.1)
[2020-09-29 12:17] LABS: ALBUMIN 3.3 g/dl (3.4-5.0); BLOOD UREA NITROGEN 16.4 mg/dL (7-18); MAGNESIUM 2.2 mg/dL (1.8-2.4)
[2020-09-29 12:20] LABS: CREATININE 0.8 mg/dL (0.55-1.3)
[2020-09-29 12:21] LABS: BILIRUBIN,TOTAL 1.2 mg/dL (0.2-1)
[2020-09-29 12:22] LABS: TOT PROT 7.6 g/dl (6.4-8.2)
[2020-09-29 13:57] VITALS: BP 140/100; PULSE 80
== END 2020-09-29 13:57 | disposition home or self-care (01) ==
LOC: JER 09:50
PROC: 3E033NZ Introduction of Analgesics, Hypnotics, Sedatives into Peripheral Vein, Percutaneous Approach (ICD-10-PCS; principal; 2020-09-29)
DX: U07.1 COVID-19 (principal)
CPT/HCPCS: 36415; 71045-TC-FY; 80053; 82550; 82728; 83735; 84484; 85025; 85610; 85730; 86140; 93005; 93010; 99284-25; J0131

== ENCOUNTER 2022-07-17 16:45 | Emergency (ER) | payer OTHER ==
[2022-07-17 18:28] VITALS: BP 119/79; PULSE 74; TEMP 98; BMI 24.2
[2022-07-17] MEDS ORDERED: IBUPROFEN 600 MG TABLET (FP) PO ONE ×2 (19:35→19:36)
== END 2022-07-17 21:35 | disposition home or self-care (01) ==
LOC: JERFT 16:45 → JER 16:45 → JERFT 21:35
DX: S92.354A Nondisplaced fracture of fifth metatarsal bone, right foot, initial encounter for closed fracture (principal); X50.0XXA Overexertion from strenuous movement or load, initial encounter
CPT/HCPCS: 73610-TC-RT-FY; 73630-TC-RT-FY; 99283-25

== ENCOUNTER 2024-01-19 20:32 | Emergency (ER) | payer OTHER ==
[2024-01-19 20:39] VITALS: BMI 28.8
[2024-01-19 21:31] LABS: URINE APPEARANCE CLEAR; URINE BILIRUBIN NEGATIVE (NEGATIVE); URINE COLOR YELLOW; URINE GLUCOSE (UA) NEGATIVE (NEGATIVE); URINE KETONE NEGATIVE (NEGATIVE); URINE LEUK ESTERASE NEGATIVE (NEGATIVE); URINE NITRITE NEGATIVE (NEGATIVE); URINE PROTEIN NEGATIVE (NEGATIVE); URINE UROBILINOGEN 0.2 mg/dL (0.2-1.0)
[2024-01-19] MEDS ORDERED: ONDANSETRON 4 MG/2 ML VIAL ONE (22:32)
[2024-01-19] MEDS ORDERED: ACETAMINOPHEN INJECTION 100 ML IVPB ONE (22:32)
[2024-01-19 22:53] LABS: BASO % 0.7 % (0-2.0); EOS % 2.6 % (0-4.5); HEMATOCRIT 42.1 % (32.4-45.2); HEMOGLOBIN 14.3 GM/dL (10.7-15.3); LYMPH % 43.9 % (8-40); MCH 29.8 pg (25.7-33.7); MCHC 33.9 g/dl (32.0-36.0); MEAN CELL VOLUME 87.8 fl (80-96); MEAN PLT VOLUME 8.9 fl (7.5-11.1); MONO % 9.3 % (3.8-10.2); NEUT % 43.5 % (42.8-82.8); PLATELET COUNT 216 10^3/uL (134-434); RBC 4.79 M/mm3 (3.60-5.2); RDW 13.5 % (11.6-15.6); WHITE BLOOD COUNT 7.5 K/mm3 (4.0-10.0)
[2024-01-19] MEDS: ACETAMINOPHEN 1000 MG/100 ML BAG IVPB ONE (22:53)
[2024-01-19] MEDS: ONDANSETRON 4 MG/2 ML VIAL IVPUSH ONE (22:53)
[2024-01-19 23:13] LABS: POTASSIUM 3.9 mmol/L (3.5-5.1)
[2024-01-19 23:15] LABS: CALCIUM 9.8 mg/dL (8.5-10.1)
[2024-01-19 23:16] LABS: ALBUMIN 3.4 g/dl (3.4-5.0); BLOOD UREA NITROGEN 20.6 mg/dL (7-18)
[2024-01-20 03:20] VITALS: BP 143/82; PULSE 70; RESP 13; TEMP 97.9
== END 2024-01-20 03:58 | disposition home or self-care (01) ==
LOC: JER 20:32
PROC: 3E033NZ Introduction of Analgesics, Hypnotics, Sedatives into Peripheral Vein, Percutaneous Approach (ICD-10-PCS; principal; 2024-01-19)
PROC: 3E033GC Introduction of Other Therapeutic Substance into Peripheral Vein, Percutaneous Approach (ICD-10-PCS; 2024-01-19)
DX: R10.32 Left lower quadrant pain (principal); R11.0 Nausea; M54.50 Low back pain, unspecified; Z20.822 Contact with and (suspected) exposure to COVID-19
CPT/HCPCS: 0241U-QW; 36415; 74177-TC; 76830-TC; 80053; 81003; 83690; 85025; 87086; 96374; 96375; 99285-25; J0131; Q9967